=== PATIENT | male | born 1970 | race Caucasian/White ===

== ENCOUNTER 2017-01-25 07:31 | Inpatient (IN) | payer MEDICAID ==
[2017-01-25] MEDS ORDERED: Scopolamine 1.5 MG Transdermal Patch TOP SCH (08:00)
[2017-01-25] MEDS ORDERED: Gabapentin 300 MG Cap PO ONE (08:00)
[2017-01-25] MEDS ORDERED: Lactated Ringers 1,000 ML IV SCH (08:00)
[2017-01-25] MEDS ORDERED: Ondansetron 4 MG/2 ML SDV ONE (08:59)
[2017-01-25] MEDS ORDERED: Glycopyrrolate 0.2 MG/ML 5 ML MDV ONE (08:59)
[2017-01-25] MEDS ORDERED: Succinylcholine 200 MG/10 ML MDV ONE (08:59)
[2017-01-25] MEDS ORDERED: Dexamethasone 4 MG/ML SDV ONE (08:59)
[2017-01-25] MEDS ORDERED: Propofol 200 MG/20 ML SDV ONE (08:59)
[2017-01-25] MEDS ORDERED: Neostigmine Methylsulfate 1 MG/ML 5 ML Syringe ONE (08:59)
[2017-01-25] MEDS ORDERED: Rocuronium 50 MG/5 ML Vial ONE (08:59)
[2017-01-25] MEDS ORDERED: Thrombin (Bovine) 5,000 Unit Kit ONE (09:00)
[2017-01-25] MEDS ORDERED: Ketamine 500 MG/5 ML MDV IV ONE (09:30)
[2017-01-25] MEDS ORDERED: Naloxone 0.4 MG/ML SDV ONE (09:31)
[2017-01-25] MEDS ORDERED: Meropenem 500 MG SDV ONE (09:41)
[2017-01-25] MEDS: Tranexamic Acid 1,000 MG in Sodium Chloride 0.9% 50 ML IV SCH ×2 (10:09→14:01)
[2017-01-25] MEDS: ceFAZolin 2 GM in Sodium Chloride 0.9% 50 ML IV ONE ×2 (10:09→11:35)
[2017-01-25] MEDS ORDERED: Albuterol/Ipratropium 3.0-0.5 MG/3 ML Neb Soln NEB ONE (10:15)
[2017-01-25] MEDS ORDERED: Linezolid 200 MG/100 ML Bag IRR ONE (11:03)
[2017-01-25] MEDS: Ropivacaine 49.25 ML, Ketorolac 30 MG, EPINEPHrine 0.5 MG, cloNIDine 80 MCG, Sodium Chl... INJECT ONE ×10 (11:33→16:33)
[2017-01-25] MEDS ORDERED: Lactated Ringers 1,000 ML ONE (12:08)
[2017-01-25] MEDS ORDERED: Labetalol 20 MG/4 ML Syringe ONE (12:12)
[2017-01-25] MEDS ORDERED: ceFAZolin 1 GM Vial ONE (13:16)
[2017-01-25] MEDS ORDERED: Sodium Chloride 0.9% 10 ML ONE (13:16)
[2017-01-25] MEDS ORDERED: Naloxone 0.4 MG/ML SDV IVPUSH PRN (13:46)
[2017-01-25] MEDS ORDERED: HYDROmorphone/Normal Saline 15 MG/30 ML PCA IV PRN (13:46)
[2017-01-25] MEDS ORDERED: Naloxone 0.4 MG/ML SDV IV PRN (13:48)
[2017-01-25] MEDS ORDERED: Ondansetron 4 MG/2 ML SDV IVPUSH PRN (15:21)
[2017-01-25] MEDS ORDERED: Albuterol/Ipratropium 3.0-0.5 MG/3 ML Neb Soln INH PRN (15:22)
[2017-01-25] MEDS ORDERED: Baclofen 10 MG Tab PO PRN (15:22)
--- NOTE | 2017-01-25 15:37 | OR ---
DATE OF PROCEDURE: 01/25/2017 PREOPERATIVE DIAGNOSES: 1. Lumbar spondylolisthesis, L5-S1. 2. Lumbar spondylosis, L5-S1. 3. Lumbar disk degeneration, L5-S1. 4. Discogenic pain, L5-S1. POSTOPERATIVE DIAGNOSES: 1. Lumbar spondylolisthesis, L5-S1. 2. Lumbar spondylosis, L5-S1. 3. Lumbar disk degeneration, L5-S1. 4. Discogenic pain, L5-S1. PROCEDURES: 1. Anterior lumbar interbody fusion. 2. Insertion of interbody device, L5-S1. 3. Segmental instrumentation, L5-S1. CO-SURGEON: Maury Lagos MD. PIPE ROLLER: RONALD Morrissey. ANESTHESIA: General endotracheal intubation. FLUID: Lactated Ringer solution. ESTIMATED BLOOD LOSS: 400 mL. COMPLICATIONS: None. SPECIMEN: None. DISCHARGE DISPOSITION: Stable to PACU. INDICATIONS: The patient was seen preoperatively in the clinic. He had undergone extensive nonoperative treatment. Preoperative imaging confirmed the above-mentioned diagnosis. Risks and benefits of the procedure were explained to the patient. Informed consent was obtained. DETAILS OF PROCEDURE: The patient was seen preoperatively by myself and the Anesthesia Staff, Dr. Maury Lagos in the preoperative holding area where the operative site was marked. He was brought to the operative suite by the anesthesia staff where general anesthesia was administered. A sterile Nicole catheter was placed. The operative fluoroscopy unit was draped in a sterile manner. Neuromonitoring leads were placed, which were normal and then remained normal throughout the case. The patient was then prepped and draped in a sterile manner. Time-out was called identifying the correct patient, correct procedure, the correct site, and antibiotics had begun within appropriate period of time. Please see Dr. Maury Lagos's notes for exposure. After exposure taken place, we confirmed the correct level. The anterior annulus was incised along the disk space with a long 15 blade. Ruth was then used to elevate the annulus from the vertebral bodies and then the disk was removed as much on block as possible followed by removal with Kerrison, straight curettes, angled curettes, and pituitaries. After this had been accomplished, I sequentially placed blunt li up to 19. I then inserted a 15 trial 26 x 34, distracted adequately. We then inserted our final implant, which was a Globus Magnify-S 26 x 34, 15 degree, 14 to 18 mm, and then had distracted and under direct fluoroscopic visualization. We then inserted a 25-mm screw superiorly after all and then two 30 mm screws inferiorly at S1. After this had been accomplished, Maury Lagos performed the closure. Please note that we applied allograft during the case, which was Globus Signify. Please see Dr. Lagos's note for closure. Wm Lagos DO /[id number]
[2017-01-25] MEDS: Dextrose 5%-Lactated Ringers 1,000 ML IV SCH ×2 (15:52→22:24)
[2017-01-25] MEDS ORDERED: Pantoprazole 40 MG Vial IV SCH (16:30)
[2017-01-25] MEDS: ClonazePAM 0.5 MG Tab PO SCH ×2 (16:56→22:24)
[2017-01-25] MEDS: ARIPiprazole 10 MG Tab PO SCH (16:56)
[2017-01-25] MEDS: buPROPion 150 MG Tab.ER PO SCH (16:56)
[2017-01-25] MEDS: VERIFY SCOPOLAMINE PATCH TOP SCH (16:56)
[2017-01-25] MEDS: ceFAZolin 2 GM in Sodium Chloride 0.9% 50 ML IV SCH (17:05)
[2017-01-25] MEDS: Albuterol/Ipratropium 3.0-0.5 MG/3 ML Neb Soln INH SCH ×2 (17:23→22:24)
[2017-01-25] MEDS: Naproxen 250 MG Tab PO SCH (22:15)
[2017-01-25] MEDS: Gabapentin 300 MG Cap PO SCH (22:16)
[2017-01-25] MEDS: FLUoxetine 20 MG Cap PO SCH (22:17)
[2017-01-26] MEDS: ceFAZolin 2 GM in Sodium Chloride 0.9% 50 ML IV SCH (04:03)
[2017-01-26] MEDS: Dextrose 5%-Lactated Ringers 1,000 ML IV SCH (04:07)
[2017-01-26] MEDS ORDERED: Acetaminophen/oxyCODONE 325-5 MG Tab PO PRN (07:22)
[2017-01-26 07:32] VITALS: BP 81/55
[2017-01-26] MEDS: ARIPiprazole 10 MG Tab PO SCH (08:39)
[2017-01-26] MEDS: buPROPion 150 MG Tab.ER PO SCH (08:39)
[2017-01-26] MEDS: FLUoxetine 20 MG Cap PO SCH (08:40)
[2017-01-26] MEDS: Naproxen 250 MG Tab PO SCH (08:40)
[2017-01-26] MEDS: Gabapentin 300 MG Cap PO SCH (08:41)
[2017-01-26] MEDS: ClonazePAM 0.5 MG Tab PO SCH (08:44)
[2017-01-26] MEDS: VERIFY SCOPOLAMINE PATCH TOP SCH (08:46)
--- NOTE | 2017-01-26 08:59 | PN ---
DATE OF SERVICE: 01/26/2017 SUBJECTIVE: Saji is postop day #1. Vital signs have been stable. Temp max 98.1. Oral intake n.p.o. Urine output via Nicole catheter is 2024. He reports his pain is controlled. The patient reports numbness in his left fingertips to his elbow. REVIEW OF SYSTEMS: Remainder of review of systems negative for any pertinent positives and negatives. OBJECTIVE: GENERAL: Saji Pleitez is a 46-year-old male. He is sitting in bed with the head of his bed elevated into a sitting position. VITAL SIGNS: TPR 98.1, 86, 16, and blood pressure 81/55. O2 by pulse oximetry is 93% on 2 L. HEENT: Negative. NECK: Supple. HEART: Regular rate and rhythm. LUNGS: Clear. ABDOMEN: Dressing dry and intact. SCOTT drain intact and has put out 25 mL of a dark red drainage. Abdominal binder is on. EXTREMITIES: Without peripheral edema. Posterior tibial pulses palpable. ASSESSMENT: Anterior lumbar interbody fusion, insertion of interbody device and segmental instrumentation for lumbar spondylolisthesis at L5-S1, lumbar spondylosis at L5-S1, lumbar disk degeneration at L5-S1, and discogenic pain at L5-S1. Date of surgery, 01/25/2017; surgeons, Maury Lagos MD, and Wm Lagos DO. PLAN: 1. Discontinue Nicole catheter. 2. Regular diet. 3. Percocet 5/325 mg 1 to 2 q.4 hours p.r.n. pain. 4. Dulcolax 20 mg b.i.d. 5. Senna Plus one tablet p.o. b.i.d. 6. Discontinue D5LR. It was accidentally pulled out by the patient. 7. 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 8. Discontinue Ancef. 9. Discontinue continuous pulse ox. 10.To teach the patient home SCOTT drain care. 11.Good pulmonary toilet encouraged. 12.We will evaluate p.r.n. or in a.m. Maxine Diaz PA-C /[id number]
[2017-01-26] MEDS ORDERED: Bisacodyl 5 MG Tab PO SCH (09:00)
[2017-01-26] MEDS: Albuterol/Ipratropium 3.0-0.5 MG/3 ML Neb Soln INH SCH (11:02)
--- NOTE | 2017-01-31 12:59 | OR ---
DATE OF PROCEDURE: 01/25/2017 PREOPERATIVE DIAGNOSIS: Lumbar discogenic pain and disc degeneration involving L5-S1. POSTOPERATIVE DIAGNOSIS: Lumbar discogenic pain and disc degeneration involving L5-S1. PROCEDURE: Anterior lumbar interspinal fusion, L5-S1 (16023). ANESTHESIA: General. ASSISTANTS: RONALD Tiwari and VIBHA Morris. INDICATION FOR PROCEDURE: This 46-year-old presenting for an anterior lumbar interspinal fusion of L5-S1 per Dr. Wm Lagos. To provide exposure, General Surgery was involved in the case and the plan is to proceed with left lower paramedian incision and exposure of the L5-S1 disk space to facilitate the inner spinal fusion. Potential risks of the procedure were reviewed at the previous consultation as well as once again today that include bleeding, infection, injury to the ureters or viscera, possible vascular injury with potentially catastrophic reddened and life-threatening bleeding, problems with venous thrombosis or arterial occlusion requiring reconstructive vascular surgery along with the possibility of cardiopulmonary, septic, or hemorrhagic complications leading to were all discussed, and the patient wishes to proceed. DETAILS OF PROCEDURE: The patient was taken to the operating room and placed in the supine position. After general endotracheal anesthesia was induced, a roll underneath the right knee was placed to offload some pressure from the psoas muscle. Nicole catheter was inserted and the abdomen prepped and draped. The patient was confirmed to have good posterior tibial pulses bilaterally at the onset of the procedure. After the abdomen was prepped and draped, left lower paramedian incision was made and carried down through the skin and subcutaneous tissue. This was then carried down through the anterior rectus sheath following the incision. The dissection of rectus tissues then continued laterally along the medial retraction of the rectus muscle and into the retroperitoneal plane. Blunt dissection was then continued down to the psoas muscle and then from there, the ureter and viscera were dissected off the posterior retroperitoneum, aorta and left iliac vessels. This was primarily done bluntly with some aided cautery dissection. At this point in time retractors were then placed such that the L5-S1 disk space was adequately exposed. The middle sacral vessels were then taken with Harmonic scalpel and the disk space then freed up from the surrounding soft tissues using blunt dissection. At this point, Dr. Reyes Lagos proceeded with the lumbar interspinal fusion procedure which will be dictated under separate heading. After a successful completion of the interspinal fusion, the retractors were removed. The vasculature was inspected. Good pulses were confirmed and at that point the area irrigated with cefoxitin-containing saline solution. The anterior rectus sheath was then closed with #2 Vicryl stitch and the subcutaneous tissue was drained with a 10-Bulgarian round Jeffy-Nowak drain. Over this, a 4-0 Vicryl subcutaneous tissue stitch was placed along with skin khadijah. The drain was affixed with some 4-0 Vicryl stitch and dressing applied. The patient was taken to the recovery room in satisfactory condition. Prior to being removed from the operating room table, the feet were inspected and the posterior tibial pulses were once again confirmed to be present and the feet appeared to be well perfused. Maury Lagos MD /[id number]
--- NOTE | 2017-02-16 15:16 | PCM.DCSUM1 ---
Discharge Summary - Hospital Course Free Text/Narrative:: Saji is a pleasant 46-year-old male who had an anterior lumbar fusion. He is ambulating without any difficulties. His dressing is clean dry and intact at this time. Patient is pain is under control with oral pain medication. He denies any other concerns at this time. - Discharge Data Discharge Date: 01/26/17 Discharge Disposition: Home, Self-Care 01 Condition: Good - Patient Summary/Data Consults: Consultations 01/25/17 15:26 PT Evaluation and Treatment [CONS] Routine Please Evaluate and Treat. PT Reason for Consult: Post op Ortho Surgery Special Instructions: evaluate and teach This query below is only for informational purposes and is not editable. - Patient Instructions Diet: Usual Diet as Tolerated Activity: Apply Ice, As Tolerated Driving: Do Not Drive Showering/Bathing: May Shower, No Tub Bathing/Swimming Wound/Incision Care: Keep Operative Site/Wound Site Clean and Dry, Change Dressing Daily Notify Provider of: Fever, Increased Pain, Swelling and Redness, Drainage Other/Special Instructions: empty drain 2 times per day. Keep incision open to air. - Discharge Plan Prescriptions/Med Rec: Acetaminophen/oxyCODONE [Percocet 325-5 MG] 1 tab PO Q6HR #90 tablet Home Medications: Home Meds Baclofen 10 mg PO BID PRN 06/29/16 [History] Diclofenac Sodium [Voltaren] 50 mg PO BID 06/29/16 [History] ARIPiprazole [Abilify] 10 mg PO DAILY 01/21/17 [History] Albuterol Sulfate [Proair Hfa] 2 puff INH QID 01/21/17 [History] ClonazePAM [KlonoPIN] 0.5 mg PO TID 01/21/17 [History] FLUoxetine [PROzac] 20 mg PO TID 01/21/17 [History] Gabapentin [Neurontin] 600 mg PO TID 01/21/17 [History] Omeprazole Magnesium [Prilosec Otc] 20 mg PO DAILY 01/21/17 [History] Simvastatin [Zocor] 40 mg PO BEDTIME 01/21/17 [History] buPROPion HCl [Wellbutrin Xl] 150 mg PO QAM 01/21/17 [History] Acetaminophen/oxyCODONE [Percocet 325-5 MG] 1 tab PO Q6HR #90 tablet 01/26/17 [ Rx] Patient Handouts: Spinal Fusion, Care After, Acetaminophen; Oxycodone tablets, Preventing Constipation After Surgery, Surgical Drain Home Care Referrals: Maury Lagos MD [Physician] - (follow up on 02/02) Wen Sorenson NP [Nurse Practitioner] - (1 month recheck) - Discharge Summary/Plan Comment DC Time >30 min.: Yes Discharge Summary/Plan Comment: At this time we'll discharge patient to home. He'll follow up with general surgery 1 week and he will follow up with orthopedic clinic in one month. He will notify us if he has any other issues in the meantime. I will send him home on Percocet. - Patient Data Vitals - Most Recent: Last Vital Signs Temp 36.7 C 01/26/17 07:27 Pulse 86 01/26/17 07:27 Resp 16 01/26/17 07:27 BP 81/55 L 01/26/17 07:27 Pulse Ox 91 L 01/26/17 07:28 Weight - Most Recent: 217 lb 2 oz Med Orders - Current: Current Medications Discontinued Medications Albuterol/Ipratropium (Duoneb 3.0-0.5 Mg/3 Ml) 3 ml NEB ONETIME ONE Stop: 01/25/17 10:16 Last Admin: 01/25/17 10:09 Dose: 3 ml Albuterol/Ipratropium (Duoneb 3.0-0.5 Mg/3 Ml) 3 ml INH QIDRT [facility] Last Admin: 01/26/17 11:02 Dose: Not Given Albuterol/Ipratropium (Duoneb 3.0-0.5 Mg/3 Ml) 3 ml INH ASDIRECTED PRN PRN Reason: BREATHING Aripiprazole (Abilify) 10 mg PO DAILY [facility] Last Admin: 01/26/17 08:39 Dose: 10 mg Baclofen (Lioresal) 10 mg PO BID PRN PRN Reason: MUSCLE SPASM Bisacodyl (Dulcolax) 20 mg PO BID [facility] Last Admin: 01/26/17 08:44 Dose: 20 mg Bupropion HCl (Wellbutrin Xl) 150 mg PO DAILY [facility] Last Admin: 01/26/17 08:39 Dose: 150 mg Cefazolin Sodium (Ancef) Confirm Administered Dose 1 gm .ROUTE .STK-MED ONE Stop: 01/25/17 13:17 Clonazepam (Klonopin) 0.5 mg PO TID [facility] Last Admin: 01/26/17 08:44 Dose: 0.5 mg Ropivacaine 49.25 ml/Ketorolac Tromethamine 30 mg/Epinephrine HCl 0.5 mg/ Clonidine HCl 80 mcg/ Sodium Chloride 48.45 ml 0 ml INJECT ONETIME ONE Stop: 01/25/17 09:31 Last Admin: 01/25/17 16:33 Dose: Not Given Dexamethasone (Dexamethasone) Confirm Administered Dose 4 mg .ROUTE .STK-MED ONE Stop: 01/25/17 09:00 Fentanyl Citrate (Fentanyl) Confirm Administered Dose 500 mcg .ROUTE .STK-MED ONE Stop: 01/25/17 09:00 Fentanyl Citrate (Fentanyl) Confirm Administered Dose 500 mcg .ROUTE .STK-MED ONE Stop: 01/25/17 11:12 Fluoxetine HCl (Prozac) 20 mg PO TID [facility] Last Admin: 01/26/17 08:40 Dose: 20 mg Gabapentin (Neurontin) 300 mg PO ONETIME ONE Stop: 01/25/17 08:01 Last Admin: 01/25/17 08:17 Dose: 300 mg Gabapentin (Neurontin) 600 mg PO TID [facility] Last Admin: 01/26/17 08:41 Dose: 600 mg Glycopyrrolate (Robinul) Confirm Administered Dose 1 mg .ROUTE .STK-MED ONE Stop: 01/25/17 09:00 Hydromorphone HCl (Dilaudid Utilization Management Nurse 15 Mg In Ns 30 Ml) 0 mg IV ASDIRECTED PRN; Protocol PRN Reason: Pain Last Admin: 01/25/17 14:11 Dose: 0.3 mg Cefazolin Sodium 2 gm/ Sodium (Chloride) 50 mls @ 100 mls/hr IV ONETIME ONE Stop: 01/25/17 06:29 Last Admin: 01/25/17 11:35 Dose: Not Given Lactated Ringer's (Ringers, Lactated) 1,000 mls @ 100 mls/hr IV ASDIRECTED [facility] Last Admin: 01/25/17 08:19 Dose: 100 mls/hr Tranexamic Acid 1,000 mg/ (Sodium Chloride) 60 mls @ 240 mls/hr IV Q3H [facility] Stop: 01/25/17 12:44 Last Admin: 01/25/17 14:01 Dose: 240 mls/hr Ketamine HCl 100 mg/ Sodium (Chloride) 100 mls @ 23 mls/hr IV ASDIRECTED [facility] Stop: 01/25/17 12:00 Linezolid (Zyvox) Confirm Administered Dose 100 mls @ as directed .ROUTE .STK- MED ONE Stop: 01/25/17 09:00 Lactated Ringer's (Ringers, Lactated) Confirm Administered Dose 1,000 mls @ as directed .ROUTE .STK-MED ONE Stop: 01/25/17 12:09 Sodium Chloride (Normal Saline) Confirm Administered Dose 10 mls @ as directed .ROUTE .STK-MED ONE Stop: 01/25/17 13:17 Dextrose/Lactated Ringer's (Dextrose 5%-Lactated Ringers) 1,000 mls @ 175 mls/ hr IV ASDIRECTED [facility] Last Admin: 01/26/17 04:07 Dose: 175 mls/hr Cefazolin Sodium 2 gm/ Sodium (Chloride) 50 mls @ 100 mls/hr IV Q8H [facility] Stop: 01/26/17 10:29 Last Admin: 01/26/17 04:03 Dose: 100 mls/hr Ketamine HCl (Ketalar) 39 mg IV ONETIME ONE Stop: 01/25/17 09:31 Last Admin: 01/25/17 16:33 Dose: Not Given Labetalol HCl (Normodyne) Confirm Administered Dose 20 mg .ROUTE .STK-MED ONE Stop: 01/25/17 12:13 Linezolid (Zyvox) 200 mg IRR .STK-MED ONE Stop: 01/25/17 11:04 Last Admin: 01/25/17 11:03 Dose: 200 mg Meropenem (Merrem) Confirm Administered Dose 500 mg .ROUTE .STK-MED ONE Stop: 01/25/17 09:42 Last Admin: 01/25/17 11:02 Dose: 500 mg Naloxone HCl (Narcan) Confirm Administered Dose 0.4 mg .ROUTE .STK-MED ONE Stop: 01/25/17 09:32 Naloxone HCl (Narcan) 0.1 mg IV ASDIRECTED PRN PRN Reason: decreased respiratory rate Naproxen (Naprosyn) 500 mg PO BID [facility] Last Admin: 01/26/17 08:40 Dose: 500 mg Neostigmine Methylsulfate (Neostigmine) Confirm Administered Dose 5 mg .ROUTE .STK-MED ONE Stop: 01/25/17 09:00 Verify Scopolamine (Patch) 0 each TOP DAILY [facility] Last Admin: 01/26/17 08:46 Dose: Not Given Ondansetron HCl (Zofran) Confirm Administered Dose 4 mg .ROUTE .STK-MED ONE Stop: 01/25/17 09:00 Ondansetron HCl (Zofran) 4 mg IVPUSH Q4H PRN PRN Reason: NAUSEA Oxycodone/Acetaminophen (Percocet 325-5 Mg) 1 - 2 tab PO Q4H PRN PRN Reason: paiin Last Admin: 01/26/17 08:07 Dose: 2 tab Pantoprazole Sodium (Protonix Iv) 40 mg IV Q24H [facility] Last Admin: 01/25/17 16:58 Dose: 40 mg Propofol (Diprivan 20 Ml) Confirm Administered Dose 200 mg .ROUTE .STK-MED ONE Stop: 01/25/17 09:00 Rocuronium [place] (Zemuron) Confirm Administered Dose 50 mg .ROUTE .STK-MED ONE Stop: 01/25/17 09:00 Scopolamine (Transderm-Scop) 1.5 mg TOP Q72H [facility] Last Admin: 01/25/17 08:18 Dose: 1.5 mg Senna/Docusate Sodium (Senna Plus) 1 tab PO BID [facility] Last Admin: 01/26/17 08:44 Dose: 1 tab Succinylcholine Chloride (Quelicin) Confirm Administered Dose 200 mg .ROUTE .STK -MED ONE Stop: 01/25/17 09:00 Thrombin (Thrombin-Jmi) Confirm Administered Dose 15,000 unit .ROUTE .STK-MED ONE Stop: 01/25/17 09:01 Last Admin: 01/25/17 11:03 Dose: 5,000 unit - Exam General: Reports: Alert, Oriented Back Exam: Reports: Normal Inspection, Full Range of Motion Extremities: Normal Inspection, Normal Range of Motion, Non-Tender, No Pedal Edema, Normal Capillary Refill Skin: Reports: Warm, Dry, Intact Wound/Incisions: Reports: Healing Well, Dressing Dry and Intact, No Drainage Neurological: Reports: No New Focal Deficit, Strength Equal Bilateral, Reflexes Equal Bilateral Psy/Mental Status: Reports: Alert, Normal Affect *Q Meaningful Use (DIS) - VTE *Q VTE Criteria *Q: - Stroke *Q Stroke Criteria *Q: - AMI *Q AMI Criteria *Q:
== END 2017-01-26 11:34 | disposition home or self-care (01) | DRG 460 ==
LOC: JP.MS 07:31 → JP.SDS 07:31 → EDSTATUS 08:10 → JP.MS 13:45
PROVIDERS: ADMIT Orthopaedic Surgery; ATTEND Surgery
PROC: 0SG30A0 Fusion of Lumbosacral Joint with Interbody Fusion Device, Anterior Approach, Anterior Column, Open Approach (ICD-10-PCS; principal; 2017-01-25)
PROC: 0SG00A0 Fusion of Lumbar Vertebral Joint with Interbody Fusion Device, Anterior Approach, Anterior Column, Open Approach (ICD-10-PCS; 2017-01-25)
DX: M43.16 Spondylolisthesis, lumbar region (principal); M51.36 Other intervertebral disc degeneration, lumbar region; M47.9 Spondylosis, unspecified; Z87.891 Personal history of nicotine dependence; Z79.899 Other long term (current) drug therapy
CPT/HCPCS: 36415; 76001; 80048; 83735; 84100; 85027; 86850; 86900; 86901; 86920; 86922; 94762; 97161-GP; 97530-GP; 97535-GP; A9270-GY; C1713; C9113; J0171; J0330; J0690; J0735; J1100; J1170; J1885; J2020; J2185; J2310; J2405; J2704; J2710; J2795; J3010; J7042; J7050; J7120; J7620

== ENCOUNTER 2018-09-27 17:34 | Emergency (ER) | payer MEDICAID ==
[2018-09-27 18:08] VITALS: BP 143/79
[2018-09-27] MEDS ORDERED: Bacitracin Oint 1 GM U/D Packet TOP ONE (19:03)
--- NOTE | 2018-09-27 19:08 | EDM.PDOC ---
ED HPI GENERAL MEDICAL PROBLEM - General Chief Complaint: Upper Extremity Injury/Pain Stated Complaint: RIGHT HAND INJURY Time Seen by Provider: 09/27/18 18:25 Source of Information: Reports: Patient History Limitations: Reports: No Limitations - History of Present Illness INITIAL COMMENTS - FREE TEXT/NARRATIVE: This man was loading a vehicle on a trailer using a chain when something broke loose and the chain flu back and hit him in the right hand. This happened just prior to arrival. He complains of mostly pain around the MCP joint of the index finger. There is a small area of skin loss on the index finger also. Left Hand Pain Score (Numeric/FACES): 8 - Related Data Allergies Allergy/AdvReac Type Severity Reaction Status Date / Time No Known Allergies Allergy Verified 04/07/18 10:16 Home Meds: Home Meds Baclofen 10 mg PO BID PRN 06/29/16 [History] Diclofenac Sodium [Voltaren] 50 mg PO BID 06/29/16 [History] ARIPiprazole [Abilify] 10 mg PO DAILY 01/21/17 [History] Albuterol Sulfate [Proair Hfa] 2 puff INH QID 01/21/17 [History] ClonazePAM [KlonoPIN] 0.5 mg PO BID 01/21/17 [History] FLUoxetine [PROzac] 20 mg PO TID 01/21/17 [History] Gabapentin [Neurontin] 600 mg PO TID 01/21/17 [History] Omeprazole Magnesium [Prilosec Otc] 20 mg PO DAILY 01/21/17 [History] Simvastatin [Zocor] 40 mg PO BEDTIME 01/21/17 [History] buPROPion HCl [Wellbutrin Xl] 150 mg PO QAM 01/21/17 [History] Past Medical History Cardiovascular History: Reports: High Cholesterol Respiratory History: Reports: Asthma Musculoskeletal History: Reports: Back Pain, Chronic Other Musculoskeletal History: s/p ALIF 01-25-17 Psychiatric History: Reports: Depression Hematologic History: Reports: Blood Transfusion(s), Other (See Below) Other Hematologic History: as a baby Dermatologic History: Reports: Other (See Below) Other Dermatologic History: R index finger cut - Infectious Disease History Infectious Disease History: Reports: Chicken Pox - Past Surgical History HEENT Surgical History: Reports: Tonsillectomy GI Surgical History: Reports: Hernia, Abdominal Social & Family History - Family History Family Medical History: Noncontributory - Tobacco Use Smoking Status *Q: Current Every Day Smoker Years of Tobacco use: 30 Packs/Tins Daily: 0.5 - Caffeine Use Caffeine Use: Reports: Coffee, Soda - Recreational Drug Use Recreational Drug Use: No Review of Systems - Review of Systems Review Of Systems: ROS reveals no pertinent complaints other than HPI. ED EXAM, GENERAL - Physical Exam Exam: See Below Exam Limited By: No Limitations General Appearance: Alert, WD/WN, Mild Distress Extremities: Other (Mild swelling to the dorsum of the hand around the MCP joint of the index finger. Small area of skin loss dorsum of the right index finger of the middle phalanx. A few little next year and there but nothing serious area MCP joint of index finger is moderately tender. Neurovascular tendon all intact) Course - Vital Signs Last Recorded V/S: Last Vital Signs Temp 36.5 C 09/27/18 17:47 Pulse 93 09/27/18 17:47 Resp 18 09/27/18 17:47 BP 143/79 H 09/27/18 17:47 Pulse Ox - Orders/Labs/Meds Orders: Active Orders 24 hr Category Date Time Status Hand Comp Min 3V Rt [CR] Stat Exams 09/27/18 18:28 Taken Bacitracin [Bacitracin Oint 1 GM] Med 09/27/18 19:03 Once 1 dose TOP ONETIME ONE Medication Orders Bacitracin (Bacitracin Oint 1 Gm) 1 dose TOP ONETIME ONE Stop: 09/27/18 19:04 Meds: Medications Generic Name Dose Route Start Last Admin Trade Name Rigo PRN Reason Stop Dose Admin Bacitracin 1 dose 09/27/18 19:03 Bacitracin Oint 1 Gm TOP 09/27/18 19:04 ONETIME ONE - Radiology Interpretation Free Text/Narrative:: No fracture or dislocation - Re-Assessments/Exams Free Text/Narrative Re-Assessment/Exam: 09/27/18 19:06 Wounds were cleansed bacitracin ointment applied and followed by a dressing. Departure - Departure Time of Disposition: 19:06 Disposition: Home, Self-Care 01 Condition: Fair Clinical Impression: Contusion of right hand - Discharge Information Referrals: Nehal Callaway PA [Primary Care Provider] - Additional Instructions: Remove the finger dressing tomorrow. Wash with soap and water and apply a Band- Aid. Keep that clean and dry change the dressing daily. If needed for pain you may use Narco 5/325 one or 2 every 4 hours dispensed #12. This medication can cause sedation and impaired driving. Use rubber gloves if needed while working to keep the dressing on your finger clean and dry - My Orders Last 24 Hours: My Active Orders 09/27/18 18:28 Hand Comp Min 3V Rt [CR] Stat 09/27/18 19:03 Bacitracin [Bacitracin Oint 1 GM] 1 dose TOP ONETIME ONE - Assessment/Plan Last 24 Hours: My Active Orders 09/27/18 18:28 Hand Comp Min 3V Rt [CR] Stat 09/27/18 19:03 Bacitracin [Bacitracin Oint 1 GM] 1 dose TOP ONETIME ONE
--- NOTE | 2018-09-27 19:10 | CRLCR ---
Indication: Pain after injury to 2nd right finger Technique: Three views right hand Comparison: None Findings: Bones: Alignment is normal. No fractures or bone lesions. Joint spaces: Unremarkable. Soft tissues: A bandage overlies the proximal interphalangeal joint of the right 2nd digit. No radiopaque foreign body identified. Impression: Negative. Dictated by Julia Carnes MD @ Sep 27 2018 7:07PM Signed by Dr. Julia Carnes @ Sep 27 2018 7:09PM
== END 2018-09-27 19:25 | disposition home or self-care (01) ==
LOC: JP.ED 17:34
DX: S60.021A Contusion of right index finger without damage to nail, initial encounter (principal); E78.00 Pure hypercholesterolemia, unspecified; F32.9 Major depressive disorder, single episode, unspecified; F17.210 Nicotine dependence, cigarettes, uncomplicated; Z79.899 Other long term (current) drug therapy; W22.8XXA Striking against or struck by other objects, initial encounter
CPT/HCPCS: 73130-RT; 99283-25

== ENCOUNTER 2018-11-04 16:08 | Emergency (ER) | payer MEDICAID ==
[2018-11-04 16:21] VITALS: BP 127/76; PULSE 94
--- NOTE | 2018-11-04 16:39 | EDM.PDOC ---
ED HPI GENERAL MEDICAL PROBLEM - General Chief Complaint: Upper Extremity Injury/Pain Stated Complaint: POSSIBLE BROKEN RT WRIST Time Seen by Provider: 11/04/18 16:26 Source of Information: Reports: Patient History Limitations: Reports: No Limitations - History of Present Illness INITIAL COMMENTS - FREE TEXT/NARRATIVE: fell yesterday to the ground, hands outstretched; hurts to move. He states he hurt this hand in the past. No previous surgeries however; it is swollen; painful w/ROM Onset: Today Location: Reports: Upper Extremity, Right Quality: Reports: Throbbing Severity: Moderate Improves with: Reports: None Worsens with: Reports: None Associated Symptoms: Reports: Other (swelling, decreased rom) Right Wrist Pain Score (Numeric/FACES): 6 - Related Data Allergies Allergy/AdvReac Type Severity Reaction Status Date / Time No Known Allergies Allergy Verified 11/04/18 16:23 Home Meds: Home Meds Baclofen 10 mg PO BID PRN 06/29/16 [History] Diclofenac Sodium [Voltaren] 50 mg PO BID 06/29/16 [History] ARIPiprazole [Abilify] 10 mg PO DAILY 01/21/17 [History] Albuterol Sulfate [Proair Hfa] 2 puff INH QID 01/21/17 [History] ClonazePAM [KlonoPIN] 0.5 mg PO BID 01/21/17 [History] FLUoxetine [PROzac] 20 mg PO TID 01/21/17 [History] Gabapentin [Neurontin] 800 mg PO TID 01/21/17 [History] Omeprazole Magnesium [Prilosec Otc] 20 mg PO DAILY 01/21/17 [History] Simvastatin [Zocor] 40 mg PO BEDTIME 01/21/17 [History] buPROPion HCl [Wellbutrin Xl] 150 mg PO QAM 01/21/17 [History] Fenofibrate Nanocrystallized [Fenofibrate] 1 tab PO ASDIRECTED 11/04/18 [History ] Fluticasone/Vilanterol [Breo Ellipta 100-25 MCG Inhalation Kit] 1 puff INH TID 11/04/18 [History] Methocarbamol 1 tab PO ASDIRECTED 11/04/18 [History] Past Medical History Cardiovascular History: Reports: High Cholesterol Respiratory History: Reports: Asthma Musculoskeletal History: Reports: Back Pain, Chronic Other Musculoskeletal History: s/p ALIF 01-25-17 Psychiatric History: Reports: Depression Hematologic History: Reports: Blood Transfusion(s), Other (See Below) Other Hematologic History: as a baby Dermatologic History: Reports: Other (See Below) Other Dermatologic History: R index finger cut - Infectious Disease History Infectious Disease History: Reports: Chicken Pox - Past Surgical History HEENT Surgical History: Reports: Tonsillectomy GI Surgical History: Reports: Hernia, Abdominal Social & Family History - Family History Family Medical History: Noncontributory - Tobacco Use Smoking Status *Q: Heavy Tobacco Smoker Years of Tobacco use: 25 Packs/Tins Daily: 0.5 - Caffeine Use Caffeine Use: Reports: Coffee, Soda - Recreational Drug Use Recreational Drug Use: Yes Review of Systems - Review of Systems Review Of Systems: ROS reveals no pertinent complaints other than HPI. 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, chronic) Neurological: Alert, Oriented, CN II-XII Intact, Normal Cognition, Normal Gait Psychiatric: Normal Affect, Normal Mood Skin Exam: Warm, Dry, Intact Course - Vital Signs Last Recorded V/S: Last Vital Signs Temp 98.3 F 11/04/18 16:20 Pulse 94 11/04/18 16:20 Resp 18 11/04/18 16:20 BP 127/76 11/04/18 16:20 Pulse Ox 94 L 11/04/18 16:20 - Re-Assessments/Exams Free Text/Narrative Re-Assessment/Exam: 11/04/18 20:27 reviewed xray of wrist; no obvious fx; Departure - Departure Time of Disposition: 17:18 Disposition: Home, Self-Care 01 Condition: Good Clinical Impression: Right wrist sprain - Discharge Information *PRESCRIPTION DRUG MONITORING PROGRAM REVIEWED*: Yes *COPY OF PRESCRIPTION DRUG MONITORING REPORT IN PATIENT ELIUD: Not Applicable Instructions: Wrist Sprain, Adult Referrals: Nehal Callaway PA [Primary Care Provider] - Forms: ED Department Discharge Additional Instructions: Ice, tylenol/motrin for pain [place] for breakthrough pain only; this will not be refilled If you take the pain medication, please do not drink or drive Follow up with your doctor if you do not feel the symptoms are improving as they should call with questions. - Problem List & Annotations (1) Right wrist sprain SNOMED Code(s): 51468811 Code(s): S63.501A - UNSPECIFIED SPRAIN OF RIGHT WRIST, INITIAL ENCOUNTER Status: Acute Priority: Low Qualifiers: Encounter type: initial encounter Qualified Code(s): S63.501A - Unspecified sprain of right wrist, initial encounter - Problem List Review Problem List Initiated/Reviewed/Updated: Yes
--- NOTE | 2018-11-04 17:17 | CRLCR ---
TECHNIQUE: Three views of the right wrist. INDICATION: Fall. FINDINGS: Small, chronic appearing ossicle adjacent to the ulnar styloid process. No definite acute right wrist fracture or dislocation identified. Dictated by Yonatan Montes MD @ 11/04/2018 5:15:22 PM Dictated by: Yonatan Montes MD @ 11/04/2018 17:15:28 (Electronically Signed)
== END 2018-11-04 17:34 | disposition home or self-care (01) ==
LOC: JP.ED 16:08
DX: S63.501A Unspecified sprain of right wrist, initial encounter (principal); F32.9 Major depressive disorder, single episode, unspecified; J45.909 Unspecified asthma, uncomplicated; F17.210 Nicotine dependence, cigarettes, uncomplicated; Z79.899 Other long term (current) drug therapy; Z98.890 Other specified postprocedural states; W19.XXXA Unspecified fall, initial encounter
CPT/HCPCS: 73110-RT; 99283-25

== ENCOUNTER 2019-01-29 18:58 | Emergency (ER) | payer MEDICAID ==
[2019-01-29 20:29] VITALS: BP 109/68; PULSE 68
--- NOTE | 2019-01-29 21:09 | EDM.PDOC ---
ED HPI GENERAL MEDICAL PROBLEM - General Chief Complaint: Upper Extremity Injury/Pain Stated Complaint: right hand swollen Time Seen by Provider: 01/29/19 20:45 Source of Information: Reports: Patient History Limitations: Reports: No Limitations - History of Present Illness INITIAL COMMENTS - FREE TEXT/NARRATIVE: 48 yo presents with concerns of right wrist and hand pain Reports this started 3 days ago Has been slowly increasing. Notes swelling on dorsum of hand as well. Denies any trauma. Works at a [employer], lots of repetitive use. Otherwise feeling well. Eileen any history of similar pain in the past. 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 Right Hand Pain Score (Numeric/FACES): 9 - Related Data Allergies Allergy/AdvReac Type Severity Reaction Status Date / Time No Known Allergies Allergy Verified 01/29/19 20:31 Home Meds: Home Meds Baclofen 10 mg PO BID PRN 06/29/16 [History] Diclofenac Sodium [Voltaren] 50 mg PO BID 06/29/16 [History] ARIPiprazole [Abilify] 10 mg PO DAILY 01/21/17 [History] Albuterol Sulfate [Proair Hfa] 2 puff INH QID 01/21/17 [History] ClonazePAM [KlonoPIN] 0.5 mg PO BID 01/21/17 [History] FLUoxetine [PROzac] 20 mg PO TID 01/21/17 [History] Gabapentin [Neurontin] 800 mg PO TID 01/21/17 [History] Omeprazole Magnesium [Prilosec Otc] 20 mg PO DAILY 01/21/17 [History] Simvastatin [Zocor] 40 mg PO BEDTIME 01/21/17 [History] buPROPion HCl [Wellbutrin Xl] 150 mg PO QAM 01/21/17 [History] Fenofibrate Nanocrystallized [Fenofibrate] 1 tab PO ASDIRECTED 11/04/18 [History ] Fluticasone/Vilanterol [Breo Ellipta 100-25 MCG Inhalation Kit] 1 puff INH TID 11/04/18 [History] Methocarbamol 1 tab PO ASDIRECTED 11/04/18 [History] Past Medical History HEENT History: Reports: Impaired Vision Cardiovascular History: Reports: High Cholesterol Respiratory History: Reports: Asthma Musculoskeletal History: Reports: Arthritis, Back Pain, Chronic Other Musculoskeletal History: s/p ALIF 01-25-17 Psychiatric History: Reports: Depression Hematologic History: Reports: Blood Transfusion(s), Other (See Below) Other Hematologic History: as a baby Dermatologic History: Reports: Other (See Below) Other Dermatologic History: R index finger cut - Infectious Disease History Infectious Disease History: Reports: Chicken Pox, Measles, Mumps - Past Surgical History HEENT Surgical History: Reports: Tonsillectomy GI Surgical History: Reports: Hernia, Abdominal Social & Family History - Family History Family Medical History: Noncontributory - Tobacco Use Smoking Status *Q: Current Every Day Smoker Years of Tobacco use: 30 Packs/Tins Daily: 0.5 Used Tobacco, but Quit: Yes Month/Year Tobacco Last Used: Jan 26/2019 Second Hand Smoke Exposure: No - Caffeine Use Caffeine Use: Reports: Coffee, Soda, Tea - Recreational Drug Use Recreational Drug Use: Yes Drug Use in Last 12 Months: Yes Recreational Drug Type: Reports: Marijuana/Hashish Recreational Drug Use Frequency: Rarely Review of Systems - Review of Systems Review Of Systems: See Below Constitutional: Reports: No Symptoms Eyes: Reports: No Symptoms Ears: Reports: No Symptoms Nose: Reports: No Symptoms Mouth/Throat: Reports: No Symptoms Respiratory: Reports: No Symptoms Cardiovascular: Reports: No Symptoms GI/Abdominal: Reports: No Symptoms Genitourinary: Reports: No Symptoms Musculoskeletal: Reports: Hand Pain Skin: Reports: No Symptoms Neurological: Reports: No Symptoms Psychiatric: Reports: No Symptoms ED EXAM, GENERAL - Physical Exam Exam: See Below Exam Limited By: No Limitations General Appearance: Alert, No Apparent Distress Ears: Normal External Exam Nose: Normal Inspection Throat/Mouth: Normal Inspection Head: Atraumatic, Normocephalic Respiratory/Chest: No Respiratory Distress Cardiovascular: Regular Rate, Rhythm GI/Abdominal: Non-Tender, No Distention Extremities: Other (R hand: Swelling of the dorsal aspect of right hand without erythema. Diffuse tenderness most prominant near the wrist. Distal CSM intact. Able to flex and extend digits. Palmar aspect unremarkable. ) Course - Vital Signs Last Recorded V/S: Last Vital Signs Temp 36.7 C 01/29/19 20:38 Pulse 68 01/29/19 20:38 Resp 18 01/29/19 20:38 BP 109/68 01/29/19 20:38 Pulse Ox 96 01/29/19 20:38 - Orders/Labs/Meds Meds: Medications Discontinued Medications Generic Name Dose Route Start Last Admin Trade Name Rigo PRN Reason Stop Dose Admin Acetaminophen 650 mg 01/29/19 21:50 Tylenol PO 01/29/19 21:51 NOW ONE Ibuprofen 400 mg 01/29/19 21:50 Motrin PO 01/29/19 21:51 ONETIME ONE - Re-Assessments/Exams Free Text/Narrative Re-Assessment/Exam: 48 yo presents with concerns of right wrist and hand pain. Denies trauma. Exam shows swelling without cellulitic changes. Oddly, on chart review the patient has been seen for this in that past over last several years. He appears to have a history of arthritis. Patient was not aware of this. He is an unreliable historian. We are obtaining plain films of the hand and wrist as he may have occult trauma. 01/29/19 21:07 Free Text/Narrative Re-Assessment/Exam: XR negative Bedside US performed of the dorsum of hand - no significant cobblestoning of the soft tissue. No fluid collection, nothing to tap. I cannot identify any acute abnormality. Suspicion this is infectious is low. We are going to treat symptomatically - NSAID, apap, ice, elevation Referral placed for urgent ortho referral in AM. 01/29/19 21:59 Departure - Departure Time of Disposition: 22:00 Disposition: Home, Self-Care 01 Clinical Impression: Hand pain, right - Discharge Information Referrals: Nehal Callaway PA [Primary Care Provider] - Forms: ED Department Discharge Additional Instructions: Please take tylenol, ibuprofen for pain Elevate the hand and apply ice overnight. It is important that you follow up with an orthopedist in clinic this week, a referral has been placed.
--- NOTE | 2019-01-29 21:34 | CRLCR ---
Indication: Right hand pain and swelling Technique: Right hand 2 views Comparison: None Findings: Bones: Fingers are slightly flexed. Alignment is otherwise normal. Chronic appearing fracture demonstrated in the ulnar styloid. No other fracture or bone lesion. Joint spaces: Joint spaces appear unremarkable. No degenerative changes. No periarticular erosions or nodules. Soft tissues: Nonspecific moderate dorsal soft tissue swelling. No focal soft tissue abnormality. Dictated by Gino Foreman MD @ 01/29/2019 9:31:59 PM Dictated by: Gino Foreman MD @ 01/29/2019 21:32:06 (Electronically Signed)
[2019-01-29] MEDS ORDERED: Acetaminophen 325 MG Tab PO ONE (21:50)
[2019-01-29] MEDS ORDERED: Ibuprofen 400 MG Tab PO ONE (21:50)
== END 2019-01-29 22:12 | disposition home or self-care (01) ==
LOC: JP.ED 18:58
DX: M79.641 Pain in right hand (principal); F17.210 Nicotine dependence, cigarettes, uncomplicated; E78.00 Pure hypercholesterolemia, unspecified; Z98.890 Other specified postprocedural states; Z79.899 Other long term (current) drug therapy
CPT/HCPCS: 73120; 99283; A9270

== ENCOUNTER 2019-09-03 12:42 | Emergency (ER) | payer MEDICAID ==
[2019-09-03 13:13] VITALS: BP 114/77; PULSE 72
[2019-09-03] MEDS ORDERED: Ketorolac 60 MG/2 ML SDV IM ONE (13:13)
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
--- NOTE | 2019-09-03 14:37 | CR ---
Lumbar Spine 2 or 3V CLINICAL HISTORY: Pain FINDINGS: The vertebral body heights are maintained. Patient has had some surgery at L5-S1 with a disc prosthesis. There is some minimal spondylosis. IMPRESSION: Previous disc surgery at L5-S1
== END 2019-09-03 14:53 | disposition home or self-care (01) ==
LOC: JP.ED 12:42
DX: S30.0XXA Contusion of lower back and pelvis, initial encounter (principal); E78.00 Pure hypercholesterolemia, unspecified; J44.9 Chronic obstructive pulmonary disease, unspecified; F32.9 Major depressive disorder, single episode, unspecified; Z79.899 Other long term (current) drug therapy; F17.210 Nicotine dependence, cigarettes, uncomplicated; W17.89XA Other fall from one level to another, initial encounter
CPT/HCPCS: 72100; 96372; 99283; J1885

== ENCOUNTER 2019-09-21 09:05 | Emergency (ER) | payer MEDICAID ==
[2019-09-21 09:30] VITALS: BP 124/77; PULSE 64
[2019-09-21] MEDS ORDERED: Ketorolac 60 MG/2 ML SDV IM ONE (10:24)
--- NOTE | 2019-09-21 10:26 | EDM.PDOC ---
ED HPI GENERAL MEDICAL PROBLEM - General Chief Complaint: General Stated Complaint: FELL THIS MORNING Time Seen by Provider: 09/21/19 10:25 Source of Information: Reports: Patient, Old Records, RN History Limitations: Reports: No Limitations - History of Present Illness INITIAL COMMENTS - FREE TEXT/NARRATIVE: 49 yo male here after passing out while coughing this morning. He was in the clinic yesterday and seen by his provider for the cough and started on prednisone. There has been no fever, bleeding, diarrhea, or vomiting. Has chronic low back pain and now posterior R neck pain. Does not think he hit his head when he fell today. Araseli Callaway is his provider. Onset: Today Onset Date: 09/21/19 Duration: Minutes:, Improving (since the incident) Location: Reports: Neck (R posterior), Chest (cough), Generalized Quality: Reports: Ache Severity: Mild Improves with: Reports: Rest Worsens with: Reports: Movement Context: Reports: Trauma Associated Symptoms: Reports: Cough (not new), Syncope (with coughing today). Denies: Fever/Chills, Nausea/Vomiting, Shortness of Breath Treatments ENAMEL DRIER: Reports: Other (see below) (none) Back Pain Score (Numeric/FACES): 10 - Related Data Allergies Allergy/AdvReac Type Severity Reaction Status Date / Time No Known Allergies Allergy Verified 09/21/19 09:23 Home Meds: Home Meds Baclofen 10 mg PO BID PRN 06/29/16 [History] Diclofenac Sodium [Voltaren] 50 mg PO BID 06/29/16 [History] ARIPiprazole [Abilify] 10 mg PO DAILY 01/21/17 [History] Albuterol Sulfate [Proair Hfa] 2 puff INH QID 01/21/17 [History] ClonazePAM [KlonoPIN] 0.5 mg PO BID 01/21/17 [History] FLUoxetine [PROzac] 20 mg PO TID 01/21/17 [History] Gabapentin [Neurontin] 800 mg PO TID 01/21/17 [History] Omeprazole Magnesium [Prilosec Otc] 20 mg PO DAILY 01/21/17 [History] Simvastatin [Zocor] 40 mg PO BEDTIME 01/21/17 [History] buPROPion HCL [Wellbutrin Xl] 150 mg PO QAM 01/21/17 [History] Fenofibrate Nanocrystallized [Fenofibrate] 1 tab PO ASDIRECTED 11/04/18 [History ] Fluticasone/Vilanterol [Breo Ellipta 100-25 MCG Inhalation Kit] 1 puff INH TID 11/04/18 [History] methocarbamoL [Methocarbamol] 1 tab PO ASDIRECTED 11/04/18 [History] Propranolol HCl 10 mg PO DAILY 09/03/19 [History] ziprasidone HCL [Ziprasidone HCl] 20 mg PO DAILY 09/03/19 [History] Acetaminophen/HYDROcodone [[place] 325-5 MG] 1 tab PO Q4H PRN #10 tab 09/21/19 [Rx ] Budesonide/Formoterol [Symbicort 160-4.5 MCG] 2 puff INH BID 09/21/19 [History] Montelukast [Singulair] 10 mg PO DAILY 09/21/19 [History] predniSONE 20 mg PO DAILY 09/21/19 [History] Past Medical History HEENT History: Reports: Impaired Vision Cardiovascular History: Reports: High Cholesterol Respiratory History: Reports: Asthma, COPD Gastrointestinal History: Reports: None Genitourinary History: Reports: None Musculoskeletal History: Reports: Arthritis, Back Pain, Chronic Other Musculoskeletal History: s/p ALIF 01-25-17. right hand pain Neurological History: Reports: None Psychiatric History: Reports: Depression Endocrine/Metabolic History: Reports: None Hematologic History: Reports: Blood Transfusion(s), Other (See Below) Other Hematologic History: as a baby Immunologic History: Reports: None Oncologic (Cancer) History: Reports: None Dermatologic History: Reports: Other (See Below) Other Dermatologic History: R index finger cut - Infectious Disease History Infectious Disease History: Reports: Chicken Pox, Measles, Mumps - Past Surgical History HEENT Surgical History: Reports: Tonsillectomy GI Surgical History: Reports: Hernia, Abdominal Musculoskeletal Surgical History: Reports: None Social & Family History - Family History Family Medical History: Noncontributory - Tobacco Use Smoking Status *Q: Current Every Day Smoker Years of Tobacco use: 32 Packs/Tins Daily: 0.5 - Caffeine Use Caffeine Use: Reports: Coffee - Recreational Drug Use Recreational Drug Use: Yes Recreational Drug Type: Reports: Marijuana/Hashish Recreational Drug Use Frequency: Daily ED ROS GENERAL - Review of Systems Review Of Systems: See Below Constitutional: Reports: No Symptoms HEENT: Reports: No Symptoms Respiratory: Reports: Cough. Denies: Shortness of Breath, Wheezing, Pleuritic Chest Pain, Sputum, Hemoptysis Cardiovascular: Reports: Syncope (associated with coughing today.) GI/Abdominal: Reports: No Symptoms : Reports: No Symptoms Musculoskeletal: Reports: Neck Pain (mild, R posterior), Back Pain (chronic) Skin: Reports: No Symptoms Neurological: Reports: No Symptoms Psychiatric: Reports: No Symptoms ED EXAM, GENERAL - Physical Exam Exam: See Below Exam Limited By: No Limitations General Appearance: Alert, WD/WN, No Apparent Distress Eye Exam: Bilateral Eye: Normal Inspection Ears: Normal External Exam, Normal Canal, Hearing Grossly Normal, Normal TMs Ear Exam: Bilateral Ear: Auricle Normal, Canal Normal, TM normal Nose: Normal Inspection, No Blood Throat/Mouth: Normal Inspection, Normal Lips, Normal Oropharynx, Normal Voice, No Airway Compromise Head: Atraumatic, Normocephalic Neck: Normal Inspection, Supple, Full Range of Motion, Tender Lateral (right side, muscular. No vertebral pain. ). No: Non-Tender, Limited Range of Motion, Lymphadenopathy (R), Lymphadenopathy (L) Respiratory/Chest: No Respiratory Distress, Lungs Clear, Normal Breath Sounds, No Accessory Muscle Use Cardiovascular: Regular Rate, Rhythm, No Edema GI/Abdominal: Normal Bowel Sounds, Soft, Non-Tender, No Distention Extremities: Normal Inspection, Normal Range of Motion, Non-Tender, No Pedal Edema. No: Pedal Edema Neurological: Alert, Oriented, CN II-XII Intact, Normal Cognition, No Motor/ Sensory Deficits Psychiatric: Normal Affect, Normal Mood Skin Exam: Warm, Dry, Intact, Normal Color, No Rash Course - Vital Signs Last Recorded V/S: Last Vital Signs Temp 36.6 C 09/21/19 09:29 Pulse 64 09/21/19 09:29 Resp 16 09/21/19 09:29 BP 124/77 09/21/19 09:29 Pulse Ox 95 09/21/19 09:29 Orthostatic Blood Pressure [ 120/83 Standing] Orthostatic Blood Pressure [ 120/73 Sitting] Orthostatic Blood Pressure [ 132/78 Supine] - Orders/Labs/Meds Orders: Active Orders 24 hr Category Date Time Status Orthostatic Vital Signs [RC] ASDIRECTED Care 09/21/19 10:18 Active Meds: Medications Discontinued Medications Generic Name Dose Route Start Last Admin Trade Name Rigo PRN Reason Stop Dose Admin Ketorolac Tromethamine 60 mg 09/21/19 10:24 09/21/19 10:44 Toradol IM 09/21/19 10:25 60 mg ONETIME ONE Administration - Re-Assessments/Exams Free Text/Narrative Re-Assessment/Exam: 09/21/19 11:42 Is feeling better after Toradol. Departure - Departure Time of Disposition: 11:50 Disposition: Home, Self-Care 01 Condition: Fair Clinical Impression: Tussive syncope Contusion of hip, left Qualifiers: Encounter type: initial encounter Qualified Code(s): S70.02XA - Contusion of left hip, initial encounter Neck strain Qualifiers: Encounter type: initial encounter Qualified Code(s): S16.1XXA - Strain of muscle, fascia and tendon at neck level, initial encounter - Discharge Information *PRESCRIPTION DRUG MONITORING PROGRAM REVIEWED*: No *COPY OF PRESCRIPTION DRUG MONITORING REPORT IN PATIENT ELIUD: No Referrals: Nehal Callaway PA [Primary Care Provider] - Forms: ED Department Discharge Additional Instructions: Take acetaminophen OR [place] as needed for pain relief. Recheck with your doctor on Tuesday. Sit down to cough to prevent fainting. Drink ample fluids. Sepsis Event Note - Evaluation Sepsis Screening Result: No Definite Risk - Focused Exam Vital Signs: Vital Signs Temp Pulse Resp BP Pulse Ox 09/21/19 09:29 36.6 C 64 16 124/77 95 Date Exam was Performed: 09/21/19 Time Exam was Performed: 11:42 - My Orders Last 24 Hours: My Active Orders 09/21/19 10:18 Orthostatic Vital Signs [RC] ASDIRECTED - Assessment/Plan Last 24 Hours: My Active Orders 09/21/19 10:18 Orthostatic Vital Signs [RC] ASDIRECTED
== END 2019-09-21 11:56 | disposition home or self-care (01) ==
LOC: JP.ED 09:05
DX: S16.1XXA Strain of muscle, fascia and tendon at neck level, initial encounter (principal); S70.02XA Contusion of left hip, initial encounter; R55 Syncope and collapse; E78.00 Pure hypercholesterolemia, unspecified; J44.9 Chronic obstructive pulmonary disease, unspecified; F32.9 Major depressive disorder, single episode, unspecified; F17.210 Nicotine dependence, cigarettes, uncomplicated; W19.XXXA Unspecified fall, initial encounter
CPT/HCPCS: 96372; 99283; J1885

== ENCOUNTER 2019-10-23 21:42 | Emergency (ER) | payer MEDICAID ==
[2019-10-23] MEDS ORDERED: Nitroglycerin 0.4 MG Tab.SL SL PRN (21:52)
[2019-10-23] MEDS ORDERED: Aspirin 81 MG Tab.Chew PO ONE (21:52)
--- NOTE | 2019-10-23 21:52 | EDM.PDOC ---
ED HPI GENERAL MEDICAL PROBLEM - General Chief Complaint: Chest Pain Stated Complaint: MEDICAL VIA [facility] Time Seen by Provider: 10/23/19 21:52 Source of Information: Reports: Patient History Limitations: Reports: No Limitations - History of Present Illness INITIAL COMMENTS - FREE TEXT/NARRATIVE: 49 years old male patient brought in by ambulance with chief complaint of chest pain or shortness breath started after chasing his dog. Pain is dull aching slightly to the left. No radiation. Denies any nausea or vomiting or diaphoresis. Nonpleuritic. Associated with shortness breath. Denies any leg pain or swelling. Denies any abdominal pain diarrhea or constipation. Denies any urinary symptom. Chest Pain Score (Numeric/FACES): 9 - Related Data Allergies Allergy/AdvReac Type Severity Reaction Status Date / Time No Known Allergies Allergy Verified 10/23/19 21:46 Home Meds: Home Meds Baclofen 10 mg PO BID PRN 06/29/16 [History] Diclofenac Sodium [Voltaren] 50 mg PO BID 06/29/16 [History] ARIPiprazole [Abilify] 10 mg PO DAILY 01/21/17 [History] Albuterol Sulfate [Proair Hfa] 2 puff INH QID 01/21/17 [History] ClonazePAM [KlonoPIN] 0.5 mg PO BID 01/21/17 [History] FLUoxetine [PROzac] 20 mg PO TID 01/21/17 [History] Gabapentin [Neurontin] 800 mg PO TID 01/21/17 [History] Omeprazole Magnesium [Prilosec Otc] 20 mg PO DAILY 01/21/17 [History] Simvastatin [Zocor] 40 mg PO BEDTIME 01/21/17 [History] buPROPion HCL [Wellbutrin Xl] 150 mg PO QAM 01/21/17 [History] Fenofibrate Nanocrystallized [Fenofibrate] 1 tab PO ASDIRECTED 11/04/18 [History] Fluticasone/Vilanterol [Breo Ellipta 100-25 MCG Inhalation Kit] 1 puff INH TID 11/04/18 [History] methocarbamoL [Methocarbamol] 1 tab PO ASDIRECTED 11/04/18 [History] Propranolol HCl 10 mg PO DAILY 09/03/19 [History] ziprasidone HCL [Ziprasidone HCl] 20 mg PO DAILY 09/03/19 [History] Acetaminophen/HYDROcodone [[place] 325-5 MG] 1 tab PO Q4H PRN #10 tab 09/21/19 [Rx] Budesonide/Formoterol [Symbicort 160-4.5 MCG] 2 puff INH BID 09/21/19 [History] Montelukast [Singulair] 10 mg PO DAILY 09/21/19 [History] predniSONE 20 mg PO DAILY 09/21/19 [History] Past Medical History HEENT History: Reports: Impaired Vision Cardiovascular History: Reports: High Cholesterol Respiratory History: Reports: Asthma, COPD Gastrointestinal History: Reports: None Genitourinary History: Reports: None Musculoskeletal History: Reports: Arthritis, Back Pain, Chronic Other Musculoskeletal History: s/p ALIF 01-25-17. right hand pain Neurological History: Reports: None Psychiatric History: Reports: Depression Endocrine/Metabolic History: Reports: None Hematologic History: Reports: Blood Transfusion(s), Other (See Below) Other Hematologic History: as a baby Immunologic History: Reports: None Oncologic (Cancer) History: Reports: None Dermatologic History: Reports: Other (See Below) Other Dermatologic History: R index finger cut - Infectious Disease History Infectious Disease History: Reports: Chicken Pox, Measles, Mumps - Past Surgical History HEENT Surgical History: Reports: Tonsillectomy GI Surgical History: Reports: Hernia, Abdominal Musculoskeletal Surgical History: Reports: None Social & Family History - Family History Family Medical History: Noncontributory - Tobacco Use Smoking Status *Q: Current Every Day Smoker Years of Tobacco use: 35 Packs/Tins Daily: 0.5 - Caffeine Use Caffeine Use: Reports: Coffee - Recreational Drug Use Recreational Drug Use: Yes Recreational Drug Type: Reports: Marijuana/Hashish Recreational Drug Use Frequency: Daily ED ROS GENERAL - Review of Systems Review Of Systems: Comprehensive ROS is negative, except as noted in HPI. ED EXAM, GENERAL - Physical Exam Exam: See Below Exam Limited By: No Limitations General Appearance: Alert, WD/WN, No Apparent Distress Head: Atraumatic, Normocephalic Neck: Normal Inspection, Supple, Non-Tender, Full Range of Motion Respiratory/Chest: No Respiratory Distress, No Accessory Muscle Use, Chest Non- Tender, Crackles, Rales Cardiovascular: Normal Peripheral Pulses, Regular Rate, Rhythm, No Edema, No Gallop, No JVD, No Murmur, No Rub GI/Abdominal: Normal Bowel Sounds, Soft, Non-Tender, No Organomegaly, No Distention, No Abnormal Bruit, No Mass Extremities: Normal Inspection, Normal Range of Motion, Non-Tender, Normal Capillary Refill, No Pedal Edema Neurological: Alert, Oriented, CN II-XII Intact, Normal Cognition, Normal Gait, Normal Reflexes, No Motor/Sensory Deficits Course - Vital Signs Last Recorded V/S: Last Vital Signs Temp 37.3 C 10/23/19 21:49 Pulse 84 10/24/19 00:57 Resp 16 10/23/19 22:18 BP 151/73 H 10/24/19 00:57 Pulse Ox 96 10/24/19 00:57 - Orders/Labs/Meds Orders: Active Orders 24 hr Category Date Time Status Cardiac Monitoring [RC] .As Directed Care 10/23/19 21:52 Active EKG Documentation Completion [RC] ASDIRECTED Care 10/23/19 21:53 Active RT Aerosol Therapy [RC] ASDIRECTED Care 10/23/19 22:04 Active Chest 1V Frontal [CR] Stat Exams 10/23/19 21:53 Taken Iopamidol [Isovue-370 (76%)] Med 10/23/19 23:00 Active 100 ml IV . DIRECTED Nitroglycerin [Nitrostat] Med 10/23/19 21:52 Active 0.4 mg SL Q5M PRN Sodium Chloride 0.9% [Normal Saline] 1,000 ml Med 10/24/19 00:07 Active IV .BOLUS EKG 12 Lead [EK] Stat Ther 10/23/19 21:53 Ordered Medication Orders Sodium Chloride (Normal Saline) 1,000 mls @ 999 mls/hr IV .BOLUS STA Stop: 10/24/19 01:07 Iopamidol (Isovue-370 (76%)) 100 ml IV . DIRECTED [facility] Last Admin: 10/23/19 23:04 Dose: 100 ml Documented by: Admin: 10/23/19 23:03 Dose: 100 ml Documented by: BIPIN Nitroglycerin (Nitrostat) 0.4 mg SL Q5M PRN PRN Reason: Chest Pain Stop: 10/24/19 21:52 Last Admin: 10/23/19 22:12 Dose: 0.4 mg Documented by: KLEIJEA Labs: Laboratory Tests 10/23/19 10/23/19 10/23/19 Range/Units 22:03 22:03 22:03 WBC 16.7 H (4.5-11.0) K/uL RBC 4.65 (4.30-5.90) M/uL Hgb 14.1 (12.0-15.0) g/dL Hct 42.8 (40.0-54.0) % MCV 92 (80-98) fL MCH 30 (27-31) pg MCHC 33 (32-36) % Plt Count 315 (150-400) K/uL Neut % (Auto) 80 H (36-66) % Lymph % (Auto) 13 L (24-44) % Lynn % (Auto) 6 (2-6) % Eos % (Auto) 2 (2-4) % Baso % (Auto) 0 (0-1) % PT 10.6 (9.5-12.0) sec INR 0.98 (0.80-1.20) D-Dimer, Quantitative 811 H (0.0-400.0) ng/mL Sodium (140-148) mmol/L Potassium (3.6-5.2) mmol/L Chloride (100-108) mmol/L Carbon Dioxide (21-32) mmol/L Anion Gap (5.0-14.0) mmol/L BUN (7-18) mg/dL Creatinine (0.8-1.3) mg/dL Est Cr Clr Drug Dosing mL/min Estimated GFR (MDRD) (>60) Glucose (74-106) mg/dL Calcium (8.5-10.1) mg/dL Magnesium (1.8-2.4) mg/dL Total Bilirubin (0.2-1.0) mg/dL AST (15-37) U/L ALT (12-78) U/L Alkaline Phosphatase (46-116) U/L Troponin I (0.000-0.056) ng/mL NT-Pro-B Natriuret Pep (5-125) pg/mL Total Protein (6.4-8.2) g/dL Albumin (3.4-5.0) g/dL Globulin (2.3-3.5) g/dL Albumin/Globulin Ratio (1.2-2.2) 10/23/19 Range/Units 22:03 WBC (4.5-11.0) K/uL RBC (4.30-5.90) M/uL Hgb (12.0-15.0) g/dL Hct (40.0-54.0) % MCV (80-98) fL MCH (27-31) pg MCHC (32-36) % Plt Count (150-400) K/uL Neut % (Auto) (36-66) % Lymph % (Auto) (24-44) % Lynn % (Auto) (2-6) % Eos % (Auto) (2-4) % Baso % (Auto) (0-1) % PT (9.5-12.0) sec INR (0.80-1.20) D-Dimer, Quantitative (0.0-400.0) ng/mL Sodium 137 L (140-148) mmol/L Potassium 3.7 (3.6-5.2) mmol/L Chloride 101 (100-108) mmol/L Carbon Dioxide 24 (21-32) mmol/L Anion Gap 15.7 H (5.0-14.0) mmol/L BUN 13 (7-18) mg/dL Creatinine 1.3 (0.8-1.3) mg/dL Est Cr Clr Drug Dosing 74.62 mL/min Estimated GFR (MDRD) 58 L (>60) Glucose 127 H (74-106) mg/dL Calcium 8.6 (8.5-10.1) mg/dL Magnesium 1.7 L (1.8-2.4) mg/dL Total Bilirubin 0.5 D (0.2-1.0) mg/dL AST 19 (15-37) U/L ALT 18 (12-78) U/L Alkaline Phosphatase 92 (46-116) U/L Troponin I < 0.017 (0.000-0.056) ng/mL NT-Pro-B Natriuret Pep 251 H (5-125) pg/mL Total Protein 6.8 (6.4-8.2) g/dL Albumin 3.1 L (3.4-5.0) g/dL Globulin 3.7 H (2.3-3.5) g/dL Albumin/Globulin Ratio 0.8 L (1.2-2.2) Meds: Medications Generic Name Dose Route Start Last Admin Trade Name Freq PRN Reason Stop Dose Admin Sodium Chloride 1,000 mls @ 999 mls/hr 10/24/19 00:07 Normal Saline IV 10/24/19 01:07 .BOLUS STA Iopamidol 100 ml 10/23/19 23:00 10/23/19 23:04 Isovue-370 (76%) IV 100 ml . DIRECTED BRISA Administration Nitroglycerin 0.4 mg 10/23/19 21:52 10/23/19 22:12 Nitrostat SL 10/24/19 21:52 0.4 mg Q5M PRN Administration Chest Pain Discontinued Medications Generic Name Dose Route Start Last Admin Trade Name Freq PRN Reason Stop Dose Admin Albuterol/Ipratropium 3 ml 10/23/19 22:04 10/23/19 22:12 Duoneb 3.0-0.5 Mg/3 Ml NEB 10/23/19 22:05 3 ml ONETIME ONE Administration Aspirin 324 mg 10/23/19 21:52 10/23/19 22:01 Aspirin PO 10/23/19 21:53 Not Given ONETIME ONE Sodium Chloride 100 mls @ 4 mls/min 10/23/19 22:46 10/23/19 23:03 Normal Saline IV 10/23/19 23:10 4 mls/min ASDIRECTED STA Administration - Radiology Interpretation Free Text/Narrative:: Patient was seen and examined shortly after arrival. Stable. Given aspirin and n itroglycerin by EMS. I did order a DuoNeb for him. EKG, lab and imaging reviewed with the patient. EKG shows no sign of acute ischemia or arrhythmia. Troponin is negative. Elevated d-dimer. CT angiogram shows bilateral extensive groundglass opacity concerning for viral pneumonia. Pulmonary embolism cannot be completely ruled out. Elevated white count with left shift. We do not have any bed available. We are on diverged for admission. Patient started on azithromycin and Rocephin after consulted with Dr. Ruiz hospitalist education liaison at [facility]. Also patient will be tested focal. At [facility] since our test is a sent out. Patient agrees with the plan. Stable for transfer. Departure - Departure Time of Disposition: 01:05 Disposition: DC/Tfer to Acute Hospital 02 Reason for Transfer *Q: Other (we are on divert) Condition: Fair Clinical Impression: Chest pain, Pneumonia Referrals: Nehal Callaway PA [Primary Care Provider] - Forms: ED Department Discharge Sepsis Event Note (ED) - Evaluation Sepsis Screening Result: No Definite Risk - Focused Exam Vital Signs: Vital Signs Temp Pulse Resp BP BP Pulse Ox 10/24/19 00:57 84 151/73 H 96 10/24/19 00:00 91 154/86 H 94 L 10/23/19 23:00 88 143/71 H 96 10/23/19 22:18 93 16 128/64 92 L 10/23/19 22:12 128/72 10/23/19 21:49 37.3 C 96 26 H 130/73 96 - My Orders Last 24 Hours: My Active Orders 10/23/19 21:52 Cardiac Monitoring [RC] .As Directed Nitroglycerin [Nitrostat] 0.4 mg SL Q5M PRN 10/23/19 21:53 EKG Documentation Completion [RC] ASDIRECTED Chest 1V Frontal [CR] Stat EKG 12 Lead [EK] Stat 10/23/19 22:04 RT Aerosol Therapy [RC] ASDIRECTED 10/23/19 23:00 Iopamidol [Isovue-370 (76%)] 100 ml IV . DIRECTED 10/24/19 00:07 Sodium Chloride 0.9% [Normal Saline] 1,000 ml IV .BOLUS - Assessment/Plan Last 24 Hours: My Active Orders 10/23/19 21:52 Cardiac Monitoring [RC] .As Directed Nitroglycerin [Nitrostat] 0.4 mg SL Q5M PRN 10/23/19 21:53 EKG Documentation Completion [RC] ASDIRECTED Chest 1V Frontal [CR] Stat EKG 12 Lead [EK] Stat 10/23/19 22:04 RT Aerosol Therapy [RC] ASDIRECTED 10/23/19 23:00 Iopamidol [Isovue-370 (76%)] 100 ml IV . DIRECTED 10/24/19 00:07 Sodium Chloride 0.9% [Normal Saline] 1,000 ml IV .BOLUS Plan: Transferred to [facility]
[2019-10-23] MEDS ORDERED: Albuterol/Ipratropium 3.0-0.5 MG/3 ML Neb Soln NEB ONE (22:04)
[2019-10-23] MEDS ORDERED: Sodium Chloride 0.9% 100 ML IV STA (22:46)
[2019-10-23] MEDS: Iopamidol 755 Mg/ML 100 ML Bottle IV SCH ×2 (23:03→23:04)
--- NOTE | 2019-10-23 23:51 | CRLCT ---
INDICATION: Chest pain TECHNIQUE: CT chest PE was acquired with 100 cc Isovue 370 intravenous contrast. COMPARISON: None. FINDINGS: Heart and vasculature: Pulmonary artery is normal in caliber. There is inadequate opacification of the pulmonary artery (84 HU) and examination is considered nondiagnostic. Thoracic aorta is normal in caliber with minimal atherosclerotic calcification. No pericardial effusion. Lungs and pleural: No pleural effusion or pneumothorax. Bilateral ground-glass opacities, greater within the right lung with intervening areas of normal lung. Lymph nodes/mediastinum: No mediastinal, hilar, or axillary adenopathy. Chest wall: No masses. Upper abdomen: Normal. Bones: Unremarkable for age. IMPRESSION: 1. Nondiagnostic evaluation for pulmonary embolus due to inadequate opacification of the pulmonary artery. 2. Extensive bilateral ground-glass opacities, greatest within the right lung suspicious for a viral pneumonia. Please note that all CT scans at this facility use dose modulation, iterative reconstruction, and/or weight-based dosing when appropriate to reduce radiation dose to as low as reasonably achievable. Dictated by Dutch Dale MD @ Oct 23 2019 11:44PM Signed by Dr. Dutch Dale @ Oct 23 2019 11:49PM
[2019-10-24] MEDS ORDERED: Sodium Chloride 0.9% 1,000 ML IV STA (00:07)
[2019-10-24] MEDS ORDERED: Azithromycin 500 MG in Sodium Chloride 0.9% 250 ML IV ONE (01:08)
[2019-10-24] MEDS ORDERED: cefTRIAXone 1 GM in Sodium Chloride 0.9% 50 ML IV ONE (01:08)
[2019-10-24 02:07] VITALS: BP 140/80; PULSE 75
--- NOTE | 2019-10-24 09:24 | CR ---
CHEST: Portable 10/23/2019 at 1010 CLINICAL HISTORY:Chest pain COMPARISON:None FINDINGS: Heart size is normal. Pulmonary vascularity is cephalized. There is generalized increase of the interstitial markings. There are no effusions Impression: Mild vascular cephalization and interstitial prominence may represent pulmonary venous hypertension 3 Upright two-view chest is recommended when patient's condition allows
== END 2019-10-24 02:31 ==
LOC: JP.ED 21:42
DX: J18.9 Pneumonia, unspecified organism (principal); E78.00 Pure hypercholesterolemia, unspecified; J44.9 Chronic obstructive pulmonary disease, unspecified; F32.9 Major depressive disorder, single episode, unspecified; F17.210 Nicotine dependence, cigarettes, uncomplicated; Z79.899 Other long term (current) drug therapy
CPT/HCPCS: 36415; 71045; 71045-26; 71275; 80053; 83735; 83880; 84484; 85025; 85379; 85610; 93005; 94640; 96365; 96367; 99285-25; A9270-GY; J0456; J0696; J7030; J7050; J7620-GY; Q9967

== ENCOUNTER 2020-01-24 11:04 | Emergency (ER) | payer MEDICAID ==
[2020-01-24 11:19] VITALS: BP 128/76; PULSE 65
--- NOTE | 2020-01-24 11:50 | EDM.PDOC ---
ED HPI GENERAL MEDICAL PROBLEM - General Chief Complaint: Respiratory Problem Stated Complaint: SHORTNESS OF BREATH Time Seen by Provider: 01/24/20 11:49 Source of Information: Reports: Patient History Limitations: Reports: No Limitations - History of Present Illness INITIAL COMMENTS - FREE TEXT/NARRATIVE: 49 years old male patient presented to the ER with a chief complaint of productive cough with creamy sputum, shortness breath and chest tightness that has been going on for almost 1 week. Also wheezing. Denies any fever. No recent travel. No sick contact. No history of exposure to covid 19. Denies any chest pain currently. Denies any nausea or vomiting or diaphoresis. Denies any abdominal pain diarrhea or constipation. Denies any urinary symptom. He continued to smoke half-pack a day Back Pain Score (Numeric/FACES): 8 - Related Data Allergies Allergy/AdvReac Type Severity Reaction Status Date / Time No Known Allergies Allergy Verified 01/24/20 11:11 Home Meds: Home Meds Diclofenac Sodium [Voltaren] 1 tab PO TID PRN 06/29/16 [History] Albuterol Sulfate [Proair Hfa] 2 puff INH QID 01/21/17 [History] ClonazePAM [KlonoPIN] 0.5 mg PO BID 01/21/17 [History] Omeprazole Magnesium [Prilosec Otc] 20 mg PO DAILY 01/21/17 [History] Simvastatin [Zocor] 40 mg PO BEDTIME 01/21/17 [History] buPROPion HCL [Wellbutrin Xl] 150 mg PO QAM 01/21/17 [History] Fenofibrate Nanocrystallized [Fenofibrate] 1 tab PO DAILY 11/04/18 [History] methocarbamoL [Methocarbamol] 1 tab PO QID PRN 11/04/18 [History] Propranolol HCl 10 mg PO DAILY 09/03/19 [History] ziprasidone HCL [Ziprasidone HCl] 20 mg PO DAILY 09/03/19 [History] Acetaminophen/HYDROcodone [[place] 325-5 MG] 1 tab PO Q4H PRN #10 tab 09/21/19 [Rx] Budesonide/Formoterol [Symbicort 160-4.5 MCG] 2 puff INH BID 09/21/19 [History] Montelukast [Singulair] 10 mg PO DAILY 09/21/19 [History] Gabapentin [Neurontin] 1 tab PO TID 10/24/19 [History] busPIRone HCl [busPIRone] 1 tab PO DAILY 10/24/19 [History] Albuterol [Proventil Neb Soln] 1 ampule INH Q6H 01/24/20 [History] Past Medical History HEENT History: Reports: Impaired Vision Cardiovascular History: Reports: High Cholesterol Respiratory History: Reports: Asthma, COPD Gastrointestinal History: Reports: None Genitourinary History: Reports: None Musculoskeletal History: Reports: Arthritis, Back Pain, Chronic Other Musculoskeletal History: s/p ALIF 01-25-17. right hand pain Neurological History: Reports: None Psychiatric History: Reports: Depression Endocrine/Metabolic History: Reports: None Hematologic History: Reports: Blood Transfusion(s), Other (See Below) Other Hematologic History: as a baby Immunologic History: Reports: None Oncologic (Cancer) History: Reports: None Dermatologic History: Reports: Other (See Below) Other Dermatologic History: R index finger cut - Infectious Disease History Infectious Disease History: Reports: Chicken Pox, Measles, Mumps - Past Surgical History HEENT Surgical History: Reports: Tonsillectomy GI Surgical History: Reports: Hernia, Abdominal Musculoskeletal Surgical History: Reports: None Social & Family History - Family History Family Medical History: Noncontributory - Tobacco Use Smoking Status *Q: Current Every Day Smoker Years of Tobacco use: 32 Packs/Tins Daily: 0.5 - Caffeine Use Caffeine Use: Reports: Coffee - Recreational Drug Use Recreational Drug Use: Yes Recreational Drug Type: Reports: Marijuana/Hashish Recreational Drug Use Frequency: Daily ED ROS GENERAL - Review of Systems Review Of Systems: Comprehensive ROS is negative, except as noted in HPI. ED EXAM, GENERAL - Physical Exam Exam: See Below Exam Limited By: No Limitations General Appearance: Alert, WD/WN, No Apparent Distress Nose: Normal Inspection, Normal Mucosa, No Blood Throat/Mouth: Normal Inspection, Normal Lips, Normal Teeth, Normal Gums, Normal Oropharynx, Normal Voice, No Airway Compromise Head: Atraumatic, Normocephalic Neck: Normal Inspection, Supple, Non-Tender, Full Range of Motion Respiratory/Chest: No Respiratory Distress, Chest Non-Tender, Wheezing. No: Respiratory Distress, Crackles, Rales, Rhonchi, Stridor, Retractions GI/Abdominal: Normal Bowel Sounds, Soft, Non-Tender, No Organomegaly, No Distention, No Abnormal Bruit, No Mass Extremities: Normal Inspection, Normal Range of Motion, Non-Tender, Normal Capillary Refill, No Pedal Edema Neurological: Alert, Oriented, CN II-XII Intact, Normal Cognition, Normal Gait, Normal Reflexes, No Motor/Sensory Deficits Course - Vital Signs Last Recorded V/S: Last Vital Signs Temp 36.2 C 01/24/20 11:18 Pulse 65 01/24/20 11:18 Resp 16 01/24/20 11:18 BP 128/76 01/24/20 11:18 Pulse Ox 97 01/24/20 11:18 - Orders/Labs/Meds Orders: Active Orders 24 hr Category Date Time Status EKG Documentation Completion [RC] ASDIRECTED Care 01/24/20 11:57 Active EKG 12 Lead [EK] Urgent Ther 01/24/20 11:55 Ordered Labs: Laboratory Tests 01/24/20 01/24/20 01/24/20 Range/Units 12:14 12:14 12:14 WBC 9.3 (4.5-11.0) K/uL RBC 4.53 (4.30-5.90) M/uL Hgb 14.0 (12.0-15.0) g/dL Hct 42.2 (40.0-54.0) % MCV 93 (80-98) fL MCH 31 (27-31) pg MCHC 33 (32-36) % Plt Count 209 (150-400) K/uL Neut % (Auto) 52 (36-66) % Lymph % (Auto) 33 (24-44) % [place] % (Auto) 9 H (2-6) % Eos % (Auto) 5 H (2-4) % Baso % (Auto) 1 (0-1) % Sodium 141 (140-148) mmol/L Potassium 4.4 (3.6-5.2) mmol/L Chloride 106 (100-108) mmol/L Carbon Dioxide 30 (21-32) mmol/L Anion Gap 5.0 (5.0-14.0) mmol/L BUN 19 H (7-18) mg/dL Creatinine 1.4 H (0.8-1.3) mg/dL Est Cr Clr Drug Dosing 69.29 mL/min Estimated GFR (MDRD) 54 L (>60) Glucose 130 H (74-106) mg/dL Lactic Acid < 0.4 L (0.4-2.0) mmol/L Calcium 8.3 L (8.5-10.1) mg/dL Total Bilirubin 0.3 (0.2-1.0) mg/dL AST 21 (15-37) U/L ALT 28 (12-78) U/L Alkaline Phosphatase 98 (46-116) U/L Troponin I < 0.017 (0.000-0.056) ng/mL NT-Pro-B Natriuret Pep (5-125) pg/mL Total Protein 6.3 L (6.4-8.2) g/dL Albumin 3.3 L (3.4-5.0) g/dL Globulin 3.0 (2.3-3.5) g/dL Albumin/Globulin Ratio 1.1 L (1.2-2.2) 01/24/20 Range/Units 12:14 WBC (4.5-11.0) K/uL RBC (4.30-5.90) M/uL Hgb (12.0-15.0) g/dL Hct (40.0-54.0) % MCV (80-98) fL MCH (27-31) pg MCHC (32-36) % Plt Count (150-400) K/uL Neut % (Auto) (36-66) % Lymph % (Auto) (24-44) % [place] % (Auto) (2-6) % Eos % (Auto) (2-4) % Baso % (Auto) (0-1) % Sodium (140-148) mmol/L Potassium (3.6-5.2) mmol/L Chloride (100-108) mmol/L Carbon Dioxide (21-32) mmol/L Anion Gap (5.0-14.0) mmol/L BUN (7-18) mg/dL Creatinine (0.8-1.3) mg/dL Est Cr Clr Drug Dosing mL/min Estimated GFR (MDRD) (>60) Glucose (74-106) mg/dL Lactic Acid (0.4-2.0) mmol/L Calcium (8.5-10.1) mg/dL Total Bilirubin (0.2-1.0) mg/dL AST (15-37) U/L ALT (12-78) U/L Alkaline Phosphatase (46-116) U/L Troponin I (0.000-0.056) ng/mL NT-Pro-B Natriuret Pep 130 H (5-125) pg/mL Total Protein (6.4-8.2) g/dL Albumin (3.4-5.0) g/dL Globulin (2.3-3.5) g/dL Albumin/Globulin Ratio (1.2-2.2) Meds: Medications Discontinued Medications Generic Name Dose Route Start Last Admin Trade Name Freq PRN Reason Stop Dose Admin Methylprednisolone Sodium Succinate 125 mg 01/24/20 11:53 01/24/20 12:29 Solu-Medrol IV 01/24/20 11:54 125 mg ONETIME ONE Administration - Radiology Interpretation Free Text/Narrative:: Patient was seen and examined shortly after arrival. Stable. Given 125 mg of Solu-Medrol. Lab and imaging reviewed with the patient. No significant acute abnormalities. This is most likely acute COPD exacerbation. Patient refused admission. He is not hypoxic. No respiratory distress. He is afebrile, hemodynamically stable. Given a prescription for prednisone and azithromycin. Advised to Rest and stay well-hydrated Close follow up with PCP Come back for any concern or any worsening symptom Stop smoking Patient agrees with the plan. Stable for discharge. Departure - Departure Time of Disposition: 13:39 Disposition: Home, Self-Care 01 Condition: Good Clinical Impression: COPD with acute exacerbation, Bronchitis - Discharge Information Instructions: Chronic Obstructive Pulmonary Disease Exacerbation, Acute Bronchitis, Adult, [id number] Referrals: PCP,None [Primary Care Provider] - Forms: ED Department Discharge Additional Instructions: Rest and stay well-hydrated Close follow up with PCP Come back for any concern or any worsening symptom Stop smoking Sepsis Event Note (ED) - Evaluation Sepsis Screening Result: No Definite Risk - Focused Exam Vital Signs: Vital Signs Temp Pulse Resp BP Pulse Ox 01/24/20 11:18 36.2 C 65 16 128/76 97 - My Orders Last 24 Hours: My Active Orders 01/24/20 11:55 EKG 12 Lead [EK] Urgent 01/24/20 11:57 EKG Documentation Completion [RC] ASDIRECTED - Assessment/Plan Last 24 Hours: My Active Orders 01/24/20 11:55 EKG 12 Lead [EK] Urgent 01/24/20 11:57 EKG Documentation Completion [RC] ASDIRECTED Plan: Rest and stay well-hydrated Close follow up with PCP Come back for any concern or any worsening symptom Stop smoking
[2020-01-24] MEDS ORDERED: methylPREDNISolone Sodium Succinate 125 MG/2 ML SDV IV ONE (11:53)
--- NOTE | 2020-01-24 13:25 | CR ---
CHEST: 2 view CLINICAL HISTORY:SOB COMPARISON:October 2019 FINDINGS: There is mild generalized the interstitial prominence. This is actually diminished when compared to prior study. Heart size and pulmonary vascularity are normal. There are no pleural effusions IMPRESSION: Mild generalized interstitial prominence is felt to be chronic. It actually has diminished since the September study
== END 2020-01-24 14:09 | disposition home or self-care (01) ==
LOC: JP.ED 11:04
DX: J44.1 Chronic obstructive pulmonary disease with (acute) exacerbation (principal); F32.9 Major depressive disorder, single episode, unspecified; E78.00 Pure hypercholesterolemia, unspecified; F17.210 Nicotine dependence, cigarettes, uncomplicated; Z79.899 Other long term (current) drug therapy
CPT/HCPCS: 36415; 71046; 80053; 83605; 83880; 84484; 85025; 93005; 96374; 99285; J2930

== ENCOUNTER 2020-01-31 15:33 | Emergency (ER) | payer MEDICAID ==
[2020-01-31 15:57] VITALS: BP 97/69; PULSE 64
[2020-01-31] MEDS ORDERED: Albuterol/Ipratropium 3.0-0.5 MG/3 ML Neb Soln NEB ONE (16:26)
--- NOTE | 2020-01-31 16:28 | EDM.PDOC ---
ED HPI GENERAL MEDICAL PROBLEM - General Chief Complaint: Respiratory Problem Stated Complaint: WHEEZING, SHORT OF BREATH, CHEST FEELS COMPRESSED Time Seen by Provider: 01/31/20 16:15 Source of Information: Reports: Patient, Old Records History Limitations: Reports: No Limitations - History of Present Illness INITIAL COMMENTS - FREE TEXT/NARRATIVE: 49 yo male cigarette smoker presents with SOB and cough over the past few days. No fever. Cough is nonproductive. Is using his usual meds with minimal relief. Has not been to the clinic for this. Onset: Gradual Duration: Day(s):, Getting Worse Location: Reports: Chest Quality: Reports: Other (no pain) Severity: Moderate Improves with: Reports: Rest Worsens with: Reports: Other (activity) Context: Reports: Other (See HPI) Associated Symptoms: Reports: Cough, Shortness of Breath. 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) (usual meds only) - Related Data Allergies Allergy/AdvReac Type Severity Reaction Status Date / Time No Known Allergies Allergy Verified 01/31/20 16:06 Home Meds: Home Meds Diclofenac Sodium [Voltaren] 1 tab PO TID PRN 06/29/16 [History] Albuterol Sulfate [Proair Hfa] 2 puff INH QID 01/21/17 [History] ClonazePAM [KlonoPIN] 0.5 mg PO BID 01/21/17 [History] Omeprazole Magnesium [Prilosec Otc] 20 mg PO DAILY 01/21/17 [History] Simvastatin [Zocor] 40 mg PO BEDTIME 01/21/17 [History] buPROPion HCL [Wellbutrin Xl] 150 mg PO QAM 01/21/17 [History] Fenofibrate Nanocrystallized [Fenofibrate] 1 tab PO DAILY 11/04/18 [History] methocarbamoL [Methocarbamol] 1 tab PO QID PRN 11/04/18 [History] Propranolol HCl 10 mg PO DAILY 09/03/19 [History] ziprasidone HCL [Ziprasidone HCl] 20 mg PO DAILY 09/03/19 [History] Acetaminophen/HYDROcodone [[place] 325-5 MG] 1 tab PO Q4H PRN #10 tab 09/21/19 [Rx] Budesonide/Formoterol [Symbicort 160-4.5 MCG] 2 puff INH BID 09/21/19 [History] Montelukast [Singulair] 10 mg PO DAILY 09/21/19 [History] Gabapentin [Neurontin] 1 tab PO TID 10/24/19 [History] busPIRone HCl [busPIRone] 1 tab PO DAILY 10/24/19 [History] Albuterol [Proventil Neb Soln] 1 ampule INH Q6H 01/24/20 [History] Past Medical History HEENT History: Reports: Impaired Vision Cardiovascular History: Reports: High Cholesterol Respiratory History: Reports: Asthma, COPD Gastrointestinal History: Reports: GERD Genitourinary History: Reports: None Musculoskeletal History: Reports: Arthritis, Back Pain, Chronic Other Musculoskeletal History: s/p ALIF 01-25-17. right hand pain Neurological History: Reports: None Psychiatric History: Reports: Depression Endocrine/Metabolic History: Reports: None Hematologic History: Reports: Blood Transfusion(s), Other (See Below) Other Hematologic History: as a baby Immunologic History: Reports: None Oncologic (Cancer) History: Reports: None Dermatologic History: Reports: Other (See Below) Other Dermatologic History: R index finger cut - Infectious Disease History Infectious Disease History: Reports: Chicken Pox, Measles, Mumps - Past Surgical History Head Surgeries/Procedures: Reports: None HEENT Surgical History: Reports: Tonsillectomy Cardiovascular Surgical History: Reports: None Respiratory Surgical History: Reports: None GI Surgical History: Reports: Appendectomy, Hernia, Abdominal Neurological Surgical History: Reports: Vertebroplasty Musculoskeletal Surgical History: Reports: None Dermatological Surgical History: Reports: None Social & Family History - Family History Family Medical History: Noncontributory - Tobacco Use Smoking Status *Q: Current Every Day Smoker Years of Tobacco use: 30 Packs/Tins Daily: 0.5 Used Tobacco, but Quit: No Second Hand Smoke Exposure: Yes - Caffeine Use Caffeine Use: Reports: Coffee - Recreational Drug Use Recreational Drug Use: Yes Drug Use in Last 12 Months: Yes Recreational Drug Type: Reports: Marijuana/Hashish Recreational Drug Use Frequency: Weekly ED ROS GENERAL - Review of Systems Review Of Systems: See Below Constitutional: Reports: No Symptoms HEENT: Reports: No Symptoms Respiratory: Reports: Shortness of Breath, Cough. Denies: Wheezing, Pleuritic Chest Pain, Sputum, Hemoptysis Cardiovascular: Reports: No Symptoms GI/Abdominal: Reports: No Symptoms : Reports: No Symptoms Musculoskeletal: Reports: No Symptoms Skin: Reports: No Symptoms Neurological: Reports: No Symptoms ED EXAM, GENERAL - Physical Exam Exam: See Below Exam Limited By: No Limitations General Appearance: Alert, WD/WN, No Apparent Distress Eye Exam: Bilateral Eye: Normal Inspection Ears: Normal External Exam, Normal Canal, Hearing Grossly Normal, Normal TMs Ear Exam: Bilateral Ear: Auricle Normal, Canal Normal, TM normal Nose: Normal Inspection, No Blood Throat/Mouth: Normal Inspection, Normal Lips, Normal Oropharynx, Normal Voice, No Airway Compromise Head: Atraumatic, Normocephalic Neck: Normal Inspection Respiratory/Chest: No Respiratory Distress, No Accessory Muscle Use, Chest Non- Tender, Decreased Breath Sounds, Wheezing. No: Lungs Clear, Normal Breath Sounds Cardiovascular: Regular Rate, Rhythm, No Edema Back Exam: Normal Inspection Extremities: Normal Inspection, Normal Range of Motion, Non-Tender, No Pedal Edema Neurological: Alert, Oriented, CN II-XII Intact, Normal Cognition, No Motor/Sensory Deficits Psychiatric: Normal Affect, Normal Mood Skin Exam: Warm, Dry, Intact, Normal Color, No Rash Course - Vital Signs Last Recorded V/S: Last Vital Signs Temp 36.5 C 01/31/20 16:13 Pulse 64 01/31/20 16:13 Resp 18 01/31/20 15:55 BP 97/69 01/31/20 16:13 Pulse Ox 94 L 01/31/20 16:13 - Orders/Labs/Meds Orders: Active Orders 24 hr Category Date Time Status RT Aerosol Therapy [RC] ASDIRECTED Care 01/31/20 16:26 Active Chest 2V [CR] Stat Exams 01/31/20 16:41 Taken Labs: Laboratory Tests 01/31/20 Range/Units 16:35 WBC 11.6 H (4.5-11.0) K/uL RBC 5.00 (4.30-5.90) M/uL Hgb 15.0 (12.0-15.0) g/dL Hct 46.1 (40.0-54.0) % MCV 92 (80-98) fL MCH 30 (27-31) pg MCHC 33 (32-36) % Plt Count 236 (150-400) K/uL Meds: Medications Discontinued Medications Generic Name Dose Route Start Last Admin Trade Name Freq PRN Reason Stop Dose Admin Albuterol/Ipratropium 3 ml 01/31/20 16:26 01/31/20 16:31 Duoneb 3.0-0.5 Mg/3 Ml NEB 01/31/20 16:27 3 ml ONETIME ONE Administration - Radiology Interpretation Free Text/Narrative:: CXR-neg - Re-Assessments/Exams Free Text/Narrative Re-Assessment/Exam: 01/31/20 17:22 Lungs more clear after his neb. Departure - Departure Time of Disposition: 17:30 Disposition: Home, Self-Care 01 Condition: Fair Clinical Impression: Bronchospasm - Discharge Information *PRESCRIPTION DRUG MONITORING PROGRAM REVIEWED*: No *COPY OF PRESCRIPTION DRUG MONITORING REPORT IN PATIENT ELIUD: No Instructions: Bronchospasm, Adult, [id number] Referrals: Nehal Callaway PA [Primary Care Provider] - Forms: ED Department Discharge Additional Instructions: No smoking. Take prednisone as directed. Recheck with your provider on Tuesday, call for an appt. Return for a fever. Continue your other meds as prescribed. Sepsis Event Note (ED) - Evaluation Sepsis Screening Result: No Definite Risk - Focused Exam Vital Signs: Vital Signs Temp Pulse Resp BP Pulse Ox 01/31/20 16:13 36.5 C 64 97/69 94 L 01/31/20 15:55 36.5 C 64 18 97/69 94 L - My Orders Last 24 Hours: My Active Orders 01/31/20 16:26 RT Aerosol Therapy [RC] ASDIRECTED 01/31/20 16:41 Chest 2V [CR] Stat - Assessment/Plan Last 24 Hours: My Active Orders 01/31/20 16:26 RT Aerosol Therapy [RC] ASDIRECTED 01/31/20 16:41 Chest 2V [CR] Stat
--- NOTE | 2020-02-01 09:31 | CR ---
CHEST: 2 view CLINICAL HISTORY:Chest pressure COMPARISON:01/24/2020 FINDINGS: The heart size, pulmonary vascularity and hilar structures are normal. No infiltrate effusion or pneumothorax is seen. There is minimal streaky density in the region of the lingula which is likely some scarring and streaky atelectasis IMPRESSION: No acute cardiopulmonary process.
== END 2020-01-31 17:30 | disposition home or self-care (01) ==
LOC: JP.ED 15:33
DX: J98.01 Acute bronchospasm (principal); F17.210 Nicotine dependence, cigarettes, uncomplicated; E78.00 Pure hypercholesterolemia, unspecified; J44.9 Chronic obstructive pulmonary disease, unspecified; K21.9 Gastro-esophageal reflux disease without esophagitis; F32.9 Major depressive disorder, single episode, unspecified; Z79.899 Other long term (current) drug therapy
CPT/HCPCS: 36415; 71046; 71046-26; 85027; 94640; 99284; 99285-25; J7620-GY

== ENCOUNTER 2020-07-03 06:35 | Day surgery (SDC) | payer MEDICAID ==
[2020-07-03] MEDS ORDERED: Propofol 200 MG/20 ML SDV ONE (07:41)
[2020-07-03] MEDS ORDERED: fentaNYL 100 MCG/2 ML SDV ONE (07:41)
[2020-07-03] MEDS ORDERED: Midazolam 1 MG/ML 2 ML SDV ONE (07:41)
[2020-07-03] MEDS ORDERED: Sodium Chloride 0.9% 1,000 ML IV SCH (07:45)
[2020-07-03 09:09] VITALS: BP 123/85; PULSE 73
--- NOTE | 2020-07-03 09:51 | OR ---
DATE OF PROCEDURE: 07/03/2020 SURGEON: Kristopher Ortiz MD PROCEDURE: Colonoscopy. FINDINGS: Normal colonoscopy. COMPLICATIONS: None. 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 ANESTHESIA: MAC. PREOPERATIVE DIAGNOSIS: Screening colonoscopy. POSTOPERATIVE DIAGNOSIS: Screening colonoscopy. RISKS: Risks, benefits, alternatives, and limitations including, but not limited to infection, bleeding, and perforation along with false positives and false negatives were explained to the patient who wished to proceed. PROCEDURE IN DETAIL: The patient was placed in left lateral decubitus position. Digital rectal exam was performed without abnormality. Scope was introduced atraumatically to the ileocecal valve. A photo was taken of this. Scope was brought back to the ascending, transverse, descending colon, and retroflexed. No evidence of old or new blood. No masses. No polyps. No abnormalities on retroflexion. No diverticulosis. No colitis. The prep was acceptable, approximately 85% of the luminal surface could be seen. Greater than 8 minutes was spent removing the scope. The patient tolerated the procedure well. Kristopher Ortiz MD /[id number]
== END 2020-07-03 09:10 | disposition home or self-care (01) ==
LOC: JP.SDS 06:35
PROVIDERS: ATTEND Surgery
DX: Z12.11 Encounter for screening for malignant neoplasm of colon (principal); J45.909 Unspecified asthma, uncomplicated; F17.210 Nicotine dependence, cigarettes, uncomplicated; E66.9 Obesity, unspecified; Z68.30 Body mass index [BMI] 30.0-30.9, adult
CPT/HCPCS: J2250; J2704; J3010; J7030

== ENCOUNTER 2020-08-21 09:27 | Emergency (ER) | payer MEDICAID ==
[2020-08-21 09:44] VITALS: PULSE 95
[2020-08-21 09:59] VITALS: BP 152/112
[2020-08-21] MEDS ORDERED: Ketorolac 60 MG/2 ML SDV IM ONE (10:06)
--- NOTE | 2020-08-21 10:19 | EDM.PDOC ---
ED HPI GENERAL MEDICAL PROBLEM - General Chief Complaint: ENT Problem Stated Complaint: JAW PAIN TOP LEFT Time Seen by Provider: 08/21/20 09:55 Source of Information: Reports: Patient, Old Records, RN History Limitations: Reports: No Limitations - History of Present Illness INITIAL COMMENTS - FREE TEXT/NARRATIVE: 50 yo male presents with pain to his upper anterior jaw. He had all of his upper teeth removed by a local dentist the beginning of this mos. He had a follow up appt about a week later and was placed on some antibiotic which he has since finished. Over the past few days his pain has been increasing. He took ibuprofen yesterday without relief. He has not called either his dentist or his provider Araseli Callaway about this increase in pain before coming to the ER today. No fever. After a phone call we learned his antibiotic was amox 875 mg bid x 7d. Onset: Gradual Onset Date: 08/18/20 Duration: Day(s):, Getting Worse Location: Reports: Face (mouth) Quality: Reports: Ache Severity: Moderate Improves with: Reports: None Worsens with: Reports: Other (? time or touching area) Context: Reports: Other (See HPI) Associated Symptoms: Reports: No Other Symptoms. Denies: Fever/Chills Treatments DIRECTOR OF BLOOD: Reports: Other (see below) (none since yesterday) - Related Data Allergies Allergy/AdvReac Type Severity Reaction Status Date / Time No Known Allergies Allergy Verified 06/30/20 12:46 Home Meds: Home Meds Albuterol Sulfate [Proair Hfa] 2 puff INH QID 01/21/17 [History] Omeprazole Magnesium [Prilosec Otc] 20 mg PO DAILY 01/21/17 [History] Simvastatin [Zocor] 40 mg PO BEDTIME 01/21/17 [History] buPROPion HCL [Wellbutrin Xl] 150 mg PO QAM 01/21/17 [History] Fenofibrate Nanocrystallized [Fenofibrate] 48 mg PO DAILY 11/04/18 [History] methocarbamoL [Methocarbamol] 750 mg PO QID PRN 11/04/18 [History] Propranolol HCl 10 mg PO DAILY 09/03/19 [History] ziprasidone HCL [Ziprasidone HCl] 20 mg PO DAILY 09/03/19 [History] Budesonide/Formoterol [Symbicort 160-4.5 MCG] 2 puff INH BID 09/21/19 [History] Gabapentin [Neurontin] 600 mg PO TID 10/24/19 [History] busPIRone HCl [busPIRone] 10 mg PO BID 10/24/19 [History] Albuterol [Proventil Neb Soln] 1 ampule INH Q6H 01/24/20 [History] Mometasone/Formoterol [Dulera 200 Mcg/5 Mcg Inhaler] 2 puff IH BID 06/30/20 [History] Clindamycin HCl 300 mg PO TID #20 capsule 08/21/20 [Rx] Past Medical History HEENT History: Reports: Impaired Vision Other HEENT History: wears glasses Cardiovascular History: Reports: High Cholesterol, SOB on Exertion Respiratory History: Reports: Asthma, COPD Gastrointestinal History: Reports: GERD Genitourinary History: Reports: None Musculoskeletal History: Reports: Arthritis, Back Pain, Chronic Other Musculoskeletal History: s/p ALIF 01-25-17. right hand pain Neurological History: Reports: Head Trauma Psychiatric History: Reports: Anxiety, Depression, Psych Hospitalization(s) Endocrine/Metabolic History: Reports: None Hematologic History: Reports: Blood Transfusion(s), Other (See Below) Other Hematologic History: ?as a baby-unknown Immunologic History: Reports: None Oncologic (Cancer) History: Reports: None Dermatologic History: Reports: Other (See Below) Other Dermatologic History: R index finger cut - Infectious Disease History Infectious Disease History: Reports: Chicken Pox, Measles, Mumps - Past Surgical History Head Surgeries/Procedures: Reports: None HEENT Surgical History: Reports: Tonsillectomy Cardiovascular Surgical History: Reports: None Respiratory Surgical History: Reports: None GI Surgical History: Reports: Appendectomy, Hernia, Abdominal Neurological Surgical History: Reports: Vertebroplasty, Other (See Below) Other Neurological Surgeries/Procedures: ALIF Musculoskeletal Surgical History: Reports: None Dermatological Surgical History: Reports: None Social & Family History - Family History Family Medical History: No Pertinent Family History - Tobacco Use Tobacco Use Status *Q: Current Every Day Tobacco User Years of Tobacco use: 30 Packs/Tins Daily: 0.2 - Caffeine Use Caffeine Use: Reports: Coffee, Energy Drinks, Soda, Tea - Recreational Drug Use Recreational Drug Use: Yes Drug Use in Last 12 Months: Yes Recreational Drug Type: Reports: Marijuana/Hashish Recreational Drug Use Frequency: Weekly ED ROS ENT - Review of Systems Review Of Systems: See Below Constitutional: Reports: No Symptoms HEENT: Reports: Other (mouth pain) Respiratory: Reports: No Symptoms Cardiovascular: Reports: No Symptoms GI/Abdominal: Reports: No Symptoms : Reports: No Symptoms Musculoskeletal: Reports: No Symptoms Skin: Reports: No Symptoms ED EXAM, ENT - Physical Exam Exam: See Below Exam Limited By: No Limitations General Appearance: Alert, WD/WN, No Apparent Distress Eye Exam: Bilateral Eye: Normal Inspection Ears: Normal External Exam, Normal Canal, Hearing Grossly Normal Nose: Normal Inspection, No Blood Mouth/Throat: Normal Inspection, Normal Lips, Normal Oropharynx, Other (mucosa appears adequately healed. This area of the upper mandible anteriorly if very tender to touch. ). No: Normal Teeth (all of his upper teeth have been extracted), Bleeding Head: Atraumatic, Normocephalic, Facial Swelling (? very subtle L cheek swelling? No redness. ), Facial Tenderness (R cheek). No: Facial Ecchymosis Neck: Normal Inspection, Non-Tender. No: Lymphadenopathy (R), Lymphadenopathy (L) Respiratory/Chest: No Respiratory Distress, Lungs Clear, Normal Breath Sounds, No Accessory Muscle Use Cardiovascular: Regular Rate, Rhythm, No Edema Extremities: Normal Inspection Neurological: Alert, Oriented, CN II-XII Intact, Normal Cognition, No Erick r/Sensory Deficits Psychiatric: Normal Affect, Normal Mood Skin: Warm, Dry, Intact, Normal Color, No Rash. No: Erythema, Increased Warmth, Wound/Incision Course - Vital Signs Last Recorded V/S: Last Vital Signs Temp 36.5 C 08/21/20 09:58 Pulse 95 08/21/20 09:58 Resp 20 08/21/20 09:43 BP 152/112 H 08/21/20 09:58 Pulse Ox 98 08/21/20 09:58 - Orders/Labs/Meds Labs: Laboratory Tests 08/21/20 08/21/20 Range/Units 10:18 10:18 WBC 12.4 H (4.5-11.0) K/uL RBC 5.60 (4.30-5.90) M/uL Hgb 17.2 H D (12.0-15.0) g/dL Hct 51.5 (40.0-54.0) % MCV 92 (80-98) fL MCH 31 (27-31) pg MCHC 33 (32-36) % Plt Count 292 (150-400) K/uL C-Reactive Protein 0.13 (0.0-0.3) mg/dL Meds: Medications Discontinued Medications Generic Name Dose Route Start Last Admin Trade Name Rigo PRN Reason Stop Dose Admin Ketorolac Tromethamine 60 mg 08/21/20 10:06 08/21/20 10:14 Ketorolac 60 Mg/2 Ml Sdv IM 08/21/20 10:07 60 mg ONETIME ONE Administration Departure - Departure Time of Disposition: 10:42 Disposition: Home, Self-Care 01 Condition: Fair Clinical Impression: Maxillary pain - Discharge Information *PRESCRIPTION DRUG MONITORING PROGRAM REVIEWED*: No *COPY OF PRESCRIPTION DRUG MONITORING REPORT IN PATIENT ELIUD: No Prescriptions: Clindamycin HCl 300 mg PO TID #20 capsule Instructions: Managing Pain Without Opioids Referrals: Nehal Callaway PA [Primary Care Provider] - Forms: ED Department Discharge Additional Instructions: Start Clindamycin(sent to [facility]) and take every 8 hrs. For pain relief take ibuprofen 600 mg every 6 hrs with food and acetaminophen 1000 mg every 6 hrs. See your dentist or Araseli Callaway for follow up before the weekend. Sepsis Event Note (ED) - Evaluation Sepsis Screening Result: No Definite Risk - Focused Exam Vital Signs: Vital Signs Temp Pulse Resp BP Pulse Ox 08/21/20 09:58 36.5 C 95 152/112 H 98 08/21/20 09:43 36.5 C 95 20 139/112 H 98
[2020-08-21] MEDS ORDERED: Acetaminophen 500 MG Tab PO ONE (10:42)
== END 2020-08-21 10:51 | disposition home or self-care (01) ==
LOC: JP.ED 09:27
DX: R68.84 Jaw pain (principal); E78.00 Pure hypercholesterolemia, unspecified; J44.9 Chronic obstructive pulmonary disease, unspecified; K21.9 Gastro-esophageal reflux disease without esophagitis; Z79.899 Other long term (current) drug therapy; Z72.0 Tobacco use
CPT/HCPCS: 36415; 85027; 86140; 96372; 99283; A9270; J1885

== ENCOUNTER 2020-09-07 19:08 | Emergency (ER) | payer MEDICAID ==
[2020-09-07] MEDS ORDERED: Sodium Chloride 0.9% 10 ML Syringe FLUSH PRN (19:27)
[2020-09-07] MEDS ORDERED: Ondansetron 4 MG/2 ML SDV IVPUSH ONE (19:27)
--- NOTE | 2020-09-07 19:28 | EDM.PDOC ---
ED HPI GENERAL MEDICAL PROBLEM - General Chief Complaint: Abdominal Pain Stated Complaint: ABD PAIN Time Seen by Provider: 09/07/20 19:26 Source of Information: Reports: Patient History Limitations: Reports: No Limitations - History of Present Illness INITIAL COMMENTS - FREE TEXT/NARRATIVE: Saji is a 50-year-old male presenting to the ED for evaluation of severe upper abdominal pain that started yesterday. The patient has had diminished appetite and mild nausea but denies any vomiting. His pain is a 10 out of 10 and is sharp and stabbing through the epigastric area radiating to the right upper quadrant. The patient still has his gallbladder. He has never experienced this pain before. He has had issues with his stomach in the past for which he takes a PPI. He denies any fever or chills. He has had loose stools since the onset of the abdominal pain with his last bowel movement being today. Upper Abdominal Pain Score (Numeric/FACES): 9 - Related Data Allergies Allergy/AdvReac Type Severity Reaction Status Date / Time No Known Allergies Allergy Verified 09/07/20 19:25 Home Meds: Home Meds Albuterol Sulfate [Proair Hfa] 2 puff INH QID 01/21/17 [History] Omeprazole Magnesium [Prilosec Otc] 20 mg PO DAILY 01/21/17 [History] Simvastatin [Zocor] 40 mg PO BEDTIME 01/21/17 [History] buPROPion HCL [Wellbutrin Xl] 150 mg PO QAM 01/21/17 [History] Fenofibrate Nanocrystallized [Fenofibrate] 48 mg PO DAILY 11/04/18 [History] methocarbamoL [Methocarbamol] 750 mg PO QID PRN 11/04/18 [History] Propranolol HCl 10 mg PO DAILY 09/03/19 [History] ziprasidone HCL [Ziprasidone HCl] 20 mg PO DAILY 09/03/19 [History] Budesonide/Formoterol [Symbicort 160-4.5 MCG] 2 puff INH BID 09/21/19 [History] Gabapentin [Neurontin] 600 mg PO TID 10/24/19 [History] busPIRone HCl [busPIRone] 10 mg PO BID 10/24/19 [History] Albuterol [Proventil Neb Soln] 1 ampule INH Q6H 01/24/20 [History] Mometasone/Formoterol [Dulera 200 Mcg/5 Mcg Inhaler] 2 puff IH BID 06/30/20 [History] Clindamycin HCl 300 mg PO TID #20 capsule 08/21/20 [Rx] Pantoprazole Sodium [Protonix] 40 mg PO DAILY #30 tablet. 09/08/20 [Rx] Sucralfate [Carafate] 1 gm PO Q6HR #120 tab 09/08/20 [Rx] Past Medical History HEENT History: Reports: Impaired Vision Other HEENT History: wears glasses Cardiovascular History: Reports: High Cholesterol, SOB on Exertion Respiratory History: Reports: Asthma, COPD Gastrointestinal History: Reports: GERD Genitourinary History: Reports: None Musculoskeletal History: Reports: Arthritis, Back Pain, Chronic Other Musculoskeletal History: s/p ALIF 01-25-17. right hand pain Neurological History: Reports: Head Trauma Psychiatric History: Reports: Anxiety, Depression, Psych Hospitalization(s) Endocrine/Metabolic History: Reports: None Hematologic History: Reports: Blood Transfusion(s), Other (See Below) Other Hematologic History: ?as a baby-unknown Immunologic History: Reports: None Oncologic (Cancer) History: Reports: None Dermatologic History: Reports: Other (See Below) Other Dermatologic History: R index finger cut - Infectious Disease History Infectious Disease History: Reports: Chicken Pox, Measles, Mumps - Past Surgical History Head Surgeries/Procedures: Reports: None HEENT Surgical History: Reports: Tonsillectomy Cardiovascular Surgical History: Reports: None Respiratory Surgical History: Reports: None GI Surgical History: Reports: Appendectomy, Hernia, Abdominal Neurological Surgical History: Reports: Vertebroplasty, Other (See Below) Other Neurological Surgeries/Procedures: ALIF Musculoskeletal Surgical History: Reports: None Dermatological Surgical History: Reports: None Social & Family History - Family History Family Medical History: No Pertinent Family History - Caffeine Use Caffeine Use: Reports: Coffee, Energy Drinks, Soda, Tea ED ROS GENERAL - Review of Systems Review Of Systems: See Below Constitutional: Reports: Decreased Appetite HEENT: Reports: No Symptoms Respiratory: Reports: No Symptoms Cardiovascular: Reports: No Symptoms Endocrine: Reports: No Symptoms GI/Abdominal: Reports: Abdominal Pain (Severe epigastric pain that started yesterday and is constant), Diarrhea (Loose stools for 1 day), Nausea (Mild) : Reports: No Symptoms Musculoskeletal: Reports: Back Pain (Mid back pain) Skin: Reports: No Symptoms Neurological: Reports: No Symptoms Psychiatric: Reports: No Symptoms Hematologic/Lymphatic: Reports: No Symptoms Immunologic: Reports: No Symptoms ED EXAM, GI/ABD - Physical Exam Exam: See Below Exam Limited By: No Limitations General Appearance: Alert, Anxious, Severe Distress Eyes: Bilateral: EOMI Throat/Mouth: Normal Inspection, Normal Oropharynx, Normal Voice, No Airway Compromise Head: Atraumatic, Normocephalic Neck: Normal Inspection, Supple Respiratory/Chest: No Respiratory Distress, Lungs Clear, Normal Breath Sounds Cardiovascular: Normal Peripheral Pulses, Regular Rate, Rhythm, Tachycardia GI/Abdominal Exam: Soft, No Distention, Guarding (Mild guarding over the epigastrium), Tender (Moderate to severe tenderness with palpation of the epigastrium), Abnormal Bowel Sounds (Diminished bowel sounds). No: Rigid, Rebound Back Exam: Normal Inspection, Full Range of Motion Extremities: Normal Inspection, Normal Range of Motion Neurological: Alert, Oriented, Normal Cognition, No Motor/Sensory Deficits Psychiatric: Normal Affect Skin Exam: Warm, Dry Lymphatic: No Adenopathy Course - Vital Signs Last Recorded V/S: Last Vital Signs Temp 36.8 C 09/07/20 19:18 Pulse 76 09/07/20 23:59 Resp 18 09/07/20 23:59 BP 134/82 09/07/20 23:59 Pulse Ox 99 09/07/20 23:59 - Orders/Labs/Meds Orders: Active Orders 24 hr Category Date Time Status Abdomen Comp [US] Stat Exams 09/07/20 22:00 Taken Iopamidol [Isovue-300 (61%)] Med 09/07/20 20:15 Active 100 ml IV . DIRECTED Lactated Ringers [Ringers, Lactated] 1,000 ml Med 09/07/20 19:45 Active IV ASDIRECTED Sodium Chloride 0.9% [Normal Saline] 80 ml Med 09/07/20 20:15 Active IV ASDIRECTED Sodium Chloride 0.9% [Saline Flush] Med 09/07/20 19:27 Active 10 ml FLUSH ASDIRECTED PRN Saline Lock Insert [OM.PC] Routine Oth 09/07/20 19:27 Ordered Medication Orders Lactated Ringer's (Ringers, Lactated) 1,000 mls @ 250 mls/hr IV ASDIRECTED BRISA Last Admin: 09/07/20 19:42 Dose: 250 mls/hr Documented by: PREILOR Sodium Chloride (Normal Saline) 80 mls @ 3 mls/sec IV ASDIRECTED BRISA Last Admin: 09/07/20 20:16 Dose: 3 mls/sec Documented by: BECKY Iopamidol (Iopamidol 612 Mg/Ml 100 Ml Bottle) 100 ml IV . DIRECTED BRISA Last Admin: 09/07/20 20:16 Dose: 100 ml Documented by: BECKY Sodium Chloride (Sodium Chloride 0.9% 10 Ml Syringe) 10 ml FLUSH ASDIRECTED PRN PRN Reason: Keep Vein Open Last Admin: 09/07/20 22:00 Dose: 10 ml Documented by: PREILOR Labs: Laboratory Tests 09/07/20 09/07/20 09/07/20 Range/Units 19:38 19:42 21:24 WBC 8.8 (4.5-11.0) K/uL RBC 4.90 (4.30-5.90) M/uL Hgb 15.3 H (12.0-15.0) g/dL Hct 44.8 (40.0-54.0) % MCV 91 (80-98) fL MCH 31 (27-31) pg MCHC 34 (32-36) % Plt Count 225 (150-400) K/uL Neut % (Auto) 58 (36-66) % Lymph % (Auto) 29 (24-44) % Sutter % (Auto) 9 H (2-6) % Eos % (Auto) 3 (2-4) % Baso % (Auto) 1 (0-1) % Sodium 141 (140-148) mmol/L Potassium 3.8 (3.6-5.2) mmol/L Chloride 104 (100-108) mmol/L Carbon Dioxide 23 (21-32) mmol/L Anion Gap 14.4 H (5.0-14.0) mmol/L BUN 16 (7-18) mg/dL Creatinine 1.3 (0.8-1.3) mg/dL Est Cr Clr Drug Dosing 73.79 mL/min Estimated GFR (MDRD) 58 L (>60) Glucose 128 H (74-106) mg/dL Calcium 8.9 (8.5-10.1) mg/dL Total Bilirubin 0.8 D (0.2-1.0) mg/dL AST 19 (15-37) U/L ALT 25 (12-78) U/L Alkaline Phosphatase 97 (46-116) U/L C-Reactive Protein 0.15 (0.0-0.3) mg/dL Total Protein 7.0 (6.4-8.2) g/dL Albumin 3.9 (3.4-5.0) g/dL Globulin 3.1 (2.3-3.5) g/dL Albumin/Globulin Ratio 1.3 (1.2-2.2) Lipase 105 (73-393) U/L Urine Color Brown A (YELLOW) Urine Appearance Slightly cloudy A (CLEAR) Urine pH 5.5 (5.0-8.0) Ur Specific Beals >= 1.030 (1.008-1.030) Urine Protein Trace H (NEGATIVE) mg/dL Urine Glucose (UA) Negative (NEGATIVE) mg/dL Urine Ketones 15 H (NEGATIVE) mg/dL Urine Occult Blood Negative (NEGATIVE) Urine Nitrite Negative (NEGATIVE) Urine Bilirubin Moderate H (NEGATIVE) Urine Urobilinogen 1.0 (0.2-1.0) EU/dL Ur Leukocyte Esterase Negative (NEGATIVE) Urine RBC Not seen (0-5) Urine WBC Not seen (0-5) Ur Epithelial Cells Moderate Amorphous Sediment Few Urine Bacteria Few Urine Mucus Many Meds: Medications Generic Name Dose Route Start Last Admin Trade Name Freq PRN Reason Stop Dose Admin Lactated Ringer's 1,000 mls @ 250 mls/hr 09/07/20 19:45 09/07/20 19:42 Ringers, Lactated IV 250 mls/hr ASDIRECTED BRISA Administration Sodium Chloride 80 mls @ 3 mls/sec 09/07/20 20:15 09/07/20 20:16 Normal Saline IV 3 mls/sec ASDIRECTED BRISA Administration Iopamidol 100 ml 09/07/20 20:15 09/07/20 20:16 Iopamidol 612 Mg/Ml 100 Ml Bottle IV 100 ml . DIRECTED BRISA Administration Sodium Chloride 10 ml 09/07/20 19:27 09/07/20 22:00 Sodium Chloride 0.9% 10 Ml Syringe FLUSH 10 ml ASDIRECTED PRN Administration Keep Vein Open Discontinued Medications Generic Name Dose Route Start Last Admin Trade Name Rigo PRN Reason Stop Dose Admin Al Hydroxide/Mg Hydroxide 15 0 ml 09/07/20 23:38 09/07/20 23:56 ml/ Lidocaine HCl 15 ml PO 09/07/20 23:39 30 ml ONETIME ONE Administration Hydromorphone HCl 1 mg 09/07/20 19:32 09/07/20 19:43 Hydromorphone 1 Mg/Ml Syringe IVPUSH 09/07/20 19:33 1 mg ONETIME ONE Administration Ondansetron HCl 4 mg 09/07/20 19:27 09/07/20 19:43 Ondansetron 4 Mg/2 Ml Sdv IVPUSH 09/07/20 19:28 4 mg ONETIME ONE Administration - Radiology Interpretation Free Text/Narrative:: I reviewed the CT of the abdomen and pelvis with contrast as well as the report. There is no acute abnormalities evident on the study. The report confirms this. - Re-Assessments/Exams Free Text/Narrative Re-Assessment/Exam: 09/07/20 22:01 I reviewed the patient's labs showing a normal CBC and comprehensive metabolic panel. His urinalysis shows a considerable amount of bilirubin but otherwise is unremarkable for infection. There is a normal lipase as well. CT of the abdomen and pelvis was performed and does not show any evidence of any acute abnormalities to account for his severe pain. We will get an ultrasound of the right upper quadrant to evaluate the gallbladder. At this time, the patient's symptoms have been controlled with Dilaudid 1 mg IV and Zofran 4 mg IV. He is continuing to receive lactated Ringer's at 250 cc/h. 09/07/20 23:40 ultrasound of the abdomen showed a normal gallbladder, and common bile duct, liver, kidneys, pancreas, and spleen. There was no evidence for sludge in the gallbladder. It is still unclear what the nidus for his upper abdominal pain is, however, I am going to give him a GI cocktail to see if this perhaps is acute gastritis. The patient has not had any hematemesis, melena or hematochezia. If the GI cocktail does help reduce his symptoms, I will put him on a PPI and Carafate for 2 to 3 weeks and have him follow-up with his primary care provider for recheck. At this time I believe the patient is suitable for discharge home in satisfactory condition. 09/08/20 00:11 patient was given a GI cocktail and had some relief of symptoms. I do believe that this is likely the nidus for his upper abdominal epigastric pain. We will push forward with Protonix 40 mg daily and Carafate 4 times a day for the next 30 days. I will have him follow-up with his primary care provider in 2 to 3 weeks for recheck. Indications return to the ED were discussed and he was discharged in satisfactory condition. Departure - Departure Time of Disposition: 00:12 Disposition: Home, Self-Care 01 Clinical Impression: Epigastric abdominal pain Acute gastritis without hemorrhage Qualifiers: Gastritis type: unspecified gastritis Qualified Code(s): K29.00 - Acute gastritis without bleeding - Discharge Information Prescriptions: Sucralfate [Carafate] 1 gm PO Q6HR #120 tab Pantoprazole Sodium [Protonix] 40 mg PO DAILY #30 tablet. Instructions: Gastritis, Adult, Abdominal Pain, Adult Referrals: Nehal Callaway PA [Primary Care Provider] - Forms: ED Department Discharge Care Plan Goals: Your work-up today has shown that you do not have any significant gallbladder, pancreatic, or liver disease. Your CAT scan was unremarkable for any significant findings. Your ultrasound did not demonstrate any significant gallbladder disease or gallstones. It is likely that your pain is arising from irritation of the lining of the stomach. Please avoid any alcohol intake for the next 2 to 3 weeks. We are replacing your omeprazole with Protonix which is considerably stronger. Please take 1 tablet daily for the next 30 days. In addition I am putting you on an acid absorbing medication called Carafate that she will take 15 minutes before each meal and 15 minutes before bedtime. This will also help reduce the amount of acid in your stomach and allow for healing of the lining. Again please follow-up with your primary care provider in 2 to 3 weeks for a recheck. If symptoms worsen please return to the ED or the clinic for reevaluation. Sepsis Event Note (ED) - Evaluation Sepsis Screening Result: Possible Sepsis Risk - Focused Exam Vital Signs: Vital Signs Temp Pulse Resp BP Pulse Ox 09/07/20 23:59 76 18 134/82 99 09/07/20 20:20 87 18 120/82 98 09/07/20 19:55 89 22 H 131/91 H 98 09/07/20 19:18 36.8 C 108 H 24 H 149/96 H 98 - Problem List & Annotations (1) Acute gastritis without hemorrhage SNOMED Code(s): 77668607, 19391947 Code(s): K29.00 - ACUTE GASTRITIS WITHOUT BLEEDING Status: Acute Priority: High Current Visit: Yes Qualifiers: Gastritis type: unspecified gastritis Qualified Code(s): K29.00 - Acute gastritis without bleeding (2) Epigastric abdominal pain SNOMED Code(s): 58274187 Code(s): R10.13 - EPIGASTRIC PAIN Status: Acute Priority: High Current Visit: Yes - Problem List Review Problem List Initiated/Reviewed/Updated: Yes - My Orders Last 24 Hours: My Active Orders 09/07/20 19:27 Sodium Chloride 0.9% [Saline Flush] 10 ml FLUSH ASDIRECTED PRN Saline Lock Insert [OM.PC] Routine 09/07/20 19:45 Lactated Ringers [Ringers, Lactated] 1,000 ml IV ASDIRECTED 09/07/20 20:15 Iopamidol [Isovue-300 (61%)] 100 ml IV . DIRECTED Sodium Chloride 0.9% [Normal Saline] 80 ml IV ASDIRECTED 09/07/20 22:00 Abdomen Comp [US] Stat - Assessment/Plan Last 24 Hours: My Active Orders 09/07/20 19:27 Sodium Chloride 0.9% [Saline Flush] 10 ml FLUSH ASDIRECTED PRN Saline Lock Insert [OM.PC] Routine 09/07/20 19:45 Lactated Ringers [Ringers, Lactated] 1,000 ml IV ASDIRECTED 09/07/20 20:15 Iopamidol [Isovue-300 (61%)] 100 ml IV . DIRECTED Sodium Chloride 0.9% [Normal Saline] 80 ml IV ASDIRECTED 09/07/20 22:00 Abdomen Comp [US] Stat
[2020-09-07] MEDS ORDERED: HYDROmorphone 1 MG/ML Syringe IVPUSH ONE (19:32)
[2020-09-07] MEDS ORDERED: Lactated Ringers 1,000 ML IV SCH (19:45)
[2020-09-07] MEDS ORDERED: Iopamidol 612 MG/ML 100 ML Bottle IV SCH (20:15)
[2020-09-07] MEDS ORDERED: Sodium Chloride 0.9% 80 ML IV SCH (20:15)
--- NOTE | 2020-09-07 21:26 | CRLCT ---
Indication: Epigastric pain Technique: Contrast enhanced axial CT imaging through the abdomen and pelvis. 100 mL Isovue-300 contrast agent was administered intravenously. Sagittal and coronal reconstructions are provided. Comparison: None Findings: No abnormalities are demonstrated relating to the liver, gallbladder, spleen, pancreas, adrenal glands, and kidneys. There is no abdominal lymphadenopathy. The portal vein is patent. There is atherosclerosis of the abdominal aorta and external iliac arteries with underlying aneurysm. The stomach and duodenum are unremarkable. There is no small bowel wall thickening or abnormal distention. The appendix is absent. There is no colonic wall thickening or mesenteric edema. The urinary bladder, prostate gland, and seminal vesicles are unremarkable. There is no pelvic lymphadenopathy or free fluid. Intervertebral disc prosthesis is noted at L5-S1. The osseous structures are otherwise unremarkable. The included lung bases are clear. Impression: No acute process demonstrated in the abdomen and pelvis. Please note that all CT scans at this facility use dose modulation, iterative reconstruction, and/or weight-based dosing when appropriate to reduce radiation dose to as low as reasonably achievable. Dictated by Desean Lundy MD @ 09/07/2020 9:25:[address] Desean Lundy @ Sep 07 2020 9:25PM
[2020-09-07] MEDS ORDERED: Alum Hydrox/Mag Hydrox/Simeth 15 ML, Lidocaine 2% 15 ML PO ONE ×2 (23:38)
[2020-09-08] VITALS: BP 134/82; PULSE 76
--- NOTE | 2020-09-08 12:13 | US ---
Abdomen Comp CLINICAL HISTORY: Epigastric pain COMPARISON: Current CT abdomen. FINDINGS: The liver is free of mass or biliary dilatation. There is increased hepatic parenchymal echogenicity. No abnormal fluid is identified.The gallbladder shows no filling defects or wall thickening. The common duct measures 3 mm. The pancreas is free of mass. Right kidney measures 10.2 x 5.1 x 4.7 cm with cortical thickness of 1.1 cm.Left kidney measures 10.9 x 5.3 x 6.7 cm. Cortical thickness is 2.1 cm The aorta is not aneurysmal. The inferior vena cava is unremarkable. The spleen is borderline enlarged just under 13 cm in length. IMPRESSION: Borderline splenomegaly Fatty infiltration of the liver
== END 2020-09-08 00:25 | disposition home or self-care (01) ==
LOC: JP.ED 19:08
DX: K29.00 Acute gastritis without bleeding (principal); E78.00 Pure hypercholesterolemia, unspecified; J44.9 Chronic obstructive pulmonary disease, unspecified; K21.9 Gastro-esophageal reflux disease without esophagitis; Z79.899 Other long term (current) drug therapy
CPT/HCPCS: 36415; 74177; 76700; 76700-26; 80053; 81001; 83690; 85025; 86140; 96374; 96375; 99284-25; A9270-GY; J1170; J2405; J7120; Q9967

== ENCOUNTER 2020-10-30 13:07 | Emergency (ER) | payer MEDICAID ==
[2020-10-30 13:49] VITALS: BP 121/83; PULSE 107
[2020-10-30] MEDS ORDERED: Amoxicillin/Clavulanate K 875-125 MG Tab PO ONE (14:33)
[2020-10-30] MEDS ORDERED: Diphtheria,Pertussis(Acell),Tetanus Vaccine 0.5 ML Syringe IM ONE (14:33)
[2020-10-30] MEDS ORDERED: Ketorolac 30 MG/ML SDV IM ONE (14:39)
--- NOTE | 2020-10-30 14:44 | EDM.PDOC ---
ED HPI GENERAL MEDICAL PROBLEM - General Chief Complaint: Bite:Animal, Insect Stated Complaint: DOG BITE ON RIGHT WRIST POSSIBLY BROKEN Time Seen by Provider: 10/30/20 14:20 Source of Information: Reports: Patient History Limitations: Reports: No Limitations - History of Present Illness INITIAL COMMENTS - FREE TEXT/NARRATIVE: This is a 50-year-old male who presents with concerns of multiple dog bites. He was walking his dog yesterday evening when the dog was attacked by another animal. When he was breaking up the fight he was bitten multiple times in the right hand and wrist by his own dog. He reports that his dog is not vaccinated for rabies. He irrigated out the wound extensively with the sink and then his irrigated them with saline. He presents now with concerns of ongoing pain at the site of the bites. He had no fevers or chills. Some bleeding from some of the wounds but no purulent discharge. - Related Data Allergies Allergy/AdvReac Type Severity Reaction Status Date / Time No Known Allergies Allergy Verified 10/30/20 13:41 Home Meds: Home Meds Albuterol Sulfate [Proair Hfa] 2 puff INH QID 01/21/17 [History] Omeprazole Magnesium [Prilosec Otc] 20 mg PO DAILY 01/21/17 [History] Simvastatin [Zocor] 40 mg PO BEDTIME 01/21/17 [History] buPROPion HCL [Wellbutrin Xl] 150 mg PO QAM 01/21/17 [History] Fenofibrate Nanocrystallized [Fenofibrate] 48 mg PO DAILY 11/04/18 [History] methocarbamoL [Methocarbamol] 750 mg PO QID PRN 11/04/18 [History] Propranolol HCl 10 mg PO DAILY 09/03/19 [History] ziprasidone HCL [Ziprasidone HCl] 20 mg PO DAILY 09/03/19 [History] Budesonide/Formoterol [Symbicort 160-4.5 MCG] 2 puff INH BID 09/21/19 [History] Gabapentin [Neurontin] 600 mg PO TID 10/24/19 [History] busPIRone HCl [busPIRone] 10 mg PO BID 10/24/19 [History] Albuterol [Proventil Neb Soln] 1 ampule INH Q6H 01/24/20 [History] Mometasone/Formoterol [Dulera 200 Mcg/5 Mcg Inhaler] 2 puff IH BID 06/30/20 [History] Clindamycin HCl 300 mg PO TID #20 capsule 08/21/20 [Rx] Pantoprazole Sodium [Protonix] 40 mg PO DAILY #30 tablet. 09/08/20 [Rx] Sucralfate [Carafate] 1 gm PO Q6HR #120 tab 09/08/20 [Rx] Amoxicillin/Potassium Clav [Augmentin 875-125 Tablet] 1 each PO BID #14 tablet 10/30/20 [Rx] Past Medical History HEENT History: Reports: Impaired Vision Other HEENT History: wears glasses Cardiovascular History: Reports: High Cholesterol, SOB on Exertion Respiratory History: Reports: Asthma, COPD Gastrointestinal History: Reports: GERD Genitourinary History: Reports: None Musculoskeletal History: Reports: Arthritis, Back Pain, Chronic Other Musculoskeletal History: s/p ALIF 01-25-17. right hand pain Neurological History: Reports: Head Trauma Psychiatric History: Reports: Anxiety, Depression, Psych Hospitalization(s) Endocrine/Metabolic History: Reports: None Hematologic History: Reports: Blood Transfusion(s), Other (See Below) Other Hematologic History: ?as a baby-unknown Immunologic History: Reports: None Oncologic (Cancer) History: Reports: None Dermatologic History: Reports: Other (See Below) Other Dermatologic History: R index finger cut - Infectious Disease History Infectious Disease History: Reports: Chicken Pox, Measles, Mumps - Past Surgical History Head Surgeries/Procedures: Reports: None HEENT Surgical History: Reports: Tonsillectomy Cardiovascular Surgical History: Reports: None Respiratory Surgical History: Reports: None GI Surgical History: Reports: Appendectomy, Hernia, Abdominal Neurological Surgical History: Reports: Vertebroplasty, Other (See Below) Other Neurological Surgeries/Procedures: ALIF Musculoskeletal Surgical History: Reports: None Dermatological Surgical History: Reports: None Social & Family History - Family History Family Medical History: No Pertinent Family History - Tobacco Use Tobacco Use Status *Q: Current Every Day Tobacco User Years of Tobacco use: 30 Packs/Tins Daily: 0.5 - Caffeine Use Caffeine Use: Reports: Soda Caffeine Use Comment: occ - Recreational Drug Use Recreational Drug Use: Yes Recreational Drug Type: Reports: Marijuana/Hashish Recreational Drug Use Frequency: Daily ED ROS GENERAL - Review of Systems Review Of Systems: See Below Constitutional: Reports: No Symptoms HEENT: Reports: No Symptoms Respiratory: Reports: No Symptoms Cardiovascular: Reports: No Symptoms Endocrine: Reports: No Symptoms GI/Abdominal: Reports: No Symptoms : Reports: No Symptoms Musculoskeletal: Reports: No Symptoms Skin: Reports: Wound Neurological: Reports: No Symptoms Psychiatric: Reports: No Symptoms Hematologic/Lymphatic: Reports: No Symptoms Immunologic: Reports: No Symptoms ED EXAM, ANIMAL BITE - Physical Exam Exam: See Below Exam Limited By: No Limitations General Appearance: Alert, No Apparent Distress Ears: Normal External Exam Nose: Normal Inspection Throat/Mouth: Normal Inspection Head: Atraumatic, Normocephalic Neck: Normal Inspection Respiratory/Chest: No Respiratory Distress Cardiovascular: Regular Rate, Rhythm GI/Abdominal: Soft, No Distention Back Exam: Normal Inspection Extremities: Other (Multiple small puncture wounds on the right wrist and over the right hand. Full range of motion of the digits. No surrounding erythema. No palmar tenderness or swelling. Pain to palpation over the right wrist without swelling or deformity.) Neurological: Alert, Oriented Psychiatric: Normal Affect, Normal Mood Skin Exam: Normal Color, Warm/Dry Lymphatic: No Adenopathy Course - Vital Signs Last Recorded V/S: Last Vital Signs Temp 36.4 C 10/30/20 13:49 Pulse 107 H 10/30/20 13:49 Resp 20 10/30/20 13:49 BP 121/83 10/30/20 13:49 Pulse Ox 97 10/30/20 13:49 - Orders/Labs/Meds Orders: Active Orders 24 hr Category Date Time Status Vaccines to be Administered [RC] PER UNIT ROUTINE Care 10/30/20 14:33 Active Wrist Comp Min 3V Rt [CR] Stat Exams 10/30/20 14:38 Taken Meds: Medications Discontinued Medications Generic Name Dose Route Start Last Admin Trade Name Freq PRN Reason Stop Dose Admin Amoxicillin/Clavulanate Potassium 1 tab 10/30/20 14:33 10/30/20 14:51 Amoxicillin/Clavulanate K 875-125 Mg Tab PO 10/30/20 14:34 1 tab ONETIME ONE Administration Diphtheria/Tetanus/Acell Pertussis 0.5 ml 10/30/20 14:33 10/30/20 14:52 Diphtheria,Pertussis(Acell),Tetanus Vaccine 0.5 Ml Syringe IM 10/30/20 14:34 0.5 ml .ONCE ONE Administration Ketorolac Tromethamine 30 mg 10/30/20 14:39 10/30/20 14:53 Ketorolac 30 Mg/Ml Sdv IM 10/30/20 14:40 30 mg ONETIME ONE Administration - Re-Assessments/Exams Free Text/Narrative Re-Assessment/Exam: This is a 50-year-old male presents with concerns of multiple dog bites to the right wrist and hand. On exam he has normal vitals. Multiple small bites as noted. There is no evidence currently of infection, although wounds are only less than a day old. No signs of flexor tenosynovitis. Some of the wounds are near his nails but no involvement of nail bed. We obtained an x-ray of his right wrist given his discomfort which showed no fracture or other abnormality. His tetanus status was updated. He was given a dose of IM Toradol. He was given a dose of Augmentin and written a prescription for this. We discussed return precautions including signs of infection. He also knows he needs to monitor his dog for signs of rabies infection and promptly see a physician if these develop. 10/30/20 14:42 Departure - Departure Time of Disposition: 15:20 Disposition: Home, Self-Care 01 Clinical Impression: Dog bite Qualifiers: Encounter type: initial encounter Qualified Code(s): W54.0XXA - Bitten by dog, initial encounter - Discharge Information *PRESCRIPTION DRUG MONITORING PROGRAM REVIEWED*: No *COPY OF PRESCRIPTION DRUG MONITORING REPORT IN PATIENT ELIUD: No Prescriptions: Amoxicillin/Potassium Clav [Augmentin 875-125 Tablet] 1 each PO BID #14 tablet Referrals: Nehal Callaway PA [Primary Care Provider] - Forms: ED Department Discharge Additional Instructions: As discussed, it is important to take the antibiotics for your dog bites. If you notice increasing redness, discharge, or pain in any of the sites these may be signs of infection and you should see a physician promptly. Please make a follow-up appointment with your primary doctor next week for a wound check. Thank you for letting us care for you today. Sepsis Event Note (ED) - Evaluation Sepsis Screening Result: No Definite Risk - Focused Exam Vital Signs: Vital Signs Temp Pulse Resp BP Pulse Ox 10/30/20 13:49 36.4 C 107 H 20 121/83 97 10/30/20 13:45 36.4 C 107 H 20 121/83 97 - My Orders Last 24 Hours: My Active Orders 10/30/20 14:33 Vaccines to be Administered [RC] PER UNIT ROUTINE 10/30/20 14:38 Wrist Comp Min 3V Rt [CR] Stat - Assessment/Plan Last 24 Hours: My Active Orders 10/30/20 14:33 Vaccines to be Administered [RC] PER UNIT ROUTINE 10/30/20 14:38 Wrist Comp Min 3V Rt [CR] Stat
--- NOTE | 2020-10-30 15:25 | CR ---
Wrist Comp Min 3V Rt CLINICAL HISTORY: Dog bite, pain FINDINGS: There is no acute fracture or dislocation within the right wrist. There is separation of the ulnar styloid. Margins appear sclerotic. This is likely of remote chronology or congenital. No foreign body seen. Impression: No acute fracture or foreign body
== END 2020-10-30 15:39 | disposition home or self-care (01) ==
LOC: JP.ED 13:07
DX: S61.551A Open bite of right wrist, initial encounter (principal); S61.451A Open bite of right hand, initial encounter; E78.00 Pure hypercholesterolemia, unspecified; K21.9 Gastro-esophageal reflux disease without esophagitis; J44.9 Chronic obstructive pulmonary disease, unspecified; Z23 Encounter for immunization; Z72.0 Tobacco use; Z79.899 Other long term (current) drug therapy; W54.0XXA Bitten by dog, initial encounter
CPT/HCPCS: 73110; 90471; 90715; 96372; 99283; A9270; J1885

== ENCOUNTER 2020-12-21 12:14 | Emergency (ER) | payer MEDICAID ==
[2020-12-21 14:03] VITALS: BP 124/89; PULSE 75
[2020-12-21] MEDS ORDERED: Acetaminophen/oxyCODONE 325-5 MG Tab PO STA (14:08)
--- NOTE | 2020-12-21 14:14 | EDM.PDOC ---
ED HPI GENERAL MEDICAL PROBLEM - General Chief Complaint: Upper Extremity Injury/Pain Stated Complaint: RT SHOULDER PAIN Time Seen by Provider: 12/21/20 14:00 Source of Information: Reports: Patient, Old Records History Limitations: Reports: No Limitations - History of Present Illness INITIAL COMMENTS - FREE TEXT/NARRATIVE: 50 yo male presents with pain to the R shoulder that has been present since he awoke today. He denies any recent injury or exertion. Pain is worse with movement of that area. No hx of the same. Took ibuprofen at home without much relief. No other sx's. Was not drinking ETOH last night, says he doesn't drink. 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 - Related Data Allergies Allergy/AdvReac Type Severity Reaction Status Date / Time No Known Allergies Allergy Verified 12/21/20 14:18 Home Meds: Home Meds Albuterol Sulfate [Proair Hfa] 2 puff INH QID 01/21/17 [History] Omeprazole Magnesium [Prilosec Otc] 20 mg PO DAILY 01/21/17 [History] Simvastatin [Zocor] 40 mg PO BEDTIME 01/21/17 [History] buPROPion HCL [Wellbutrin Xl] 150 mg PO QAM 01/21/17 [History] Fenofibrate Nanocrystallized [Fenofibrate] 48 mg PO DAILY 11/04/18 [History] methocarbamoL [Methocarbamol] 750 mg PO QID PRN 11/04/18 [History] Propranolol HCl 10 mg PO DAILY 09/03/19 [History] Budesonide/Formoterol [Symbicort 160-4.5 MCG] 2 puff INH BID 09/21/19 [History] Gabapentin [Neurontin] 600 mg PO TID 10/24/19 [History] busPIRone HCl [busPIRone] 10 mg PO BID 10/24/19 [History] Albuterol [Proventil Neb Soln] 1 ampule INH Q6H 01/24/20 [History] Mometasone/Formoterol [Dulera 200 Mcg/5 Mcg Inhaler] 2 puff IH BID 06/30/20 [History] Clindamycin HCl 300 mg PO TID #20 capsule 08/21/20 [Rx] Pantoprazole Sodium [Protonix] 40 mg PO DAILY #30 tablet.dr 09/08/20 [Rx] Sucralfate [Carafate] 1 gm PO Q6HR #120 tab 09/08/20 [Rx] Amoxicillin/Potassium Clav [Augmentin 875-125 Tablet] 1 each PO BID #14 tablet 10/30/20 [Rx] DULoxetine [Cymbalta] 1 tab PO DAILY 12/21/20 [History] Diclofenac Sodium [Voltaren] 1 tab PO DAILY 12/21/20 [History] Mirtazapine [Remeron] 1 tab PO DAILY 12/21/20 [History] Past Medical History HEENT History: Reports: Impaired Vision Other HEENT History: wears glasses Cardiovascular History: Reports: High Cholesterol, SOB on Exertion Respiratory History: Reports: Asthma, COPD Gastrointestinal History: Reports: GERD Genitourinary History: Reports: None Musculoskeletal History: Reports: Arthritis, Back Pain, Chronic Other Musculoskeletal History: s/p ALIF 01-25-17. right hand pain Neurological History: Reports: Head Trauma Psychiatric History: Reports: Anxiety, Depression, Psych Hospitalization(s) Endocrine/Metabolic History: Reports: None Hematologic History: Reports: Blood Transfusion(s), Other (See Below) Other Hematologic History: ?as a baby-unknown Immunologic History: Reports: None Oncologic (Cancer) History: Reports: None Dermatologic History: Reports: Other (See Below) Other Dermatologic History: R index finger cut - Infectious Disease History Infectious Disease History: Reports: Chicken Pox, Measles, Mumps - Past Surgical History Head Surgeries/Procedures: Reports: None HEENT Surgical History: Reports: Tonsillectomy Cardiovascular Surgical History: Reports: None Respiratory Surgical History: Reports: None GI Surgical History: Reports: Appendectomy, Hernia, Abdominal Neurological Surgical History: Reports: Vertebroplasty, Other (See Below) Other Neurological Surgeries/Procedures: ALIF Musculoskeletal Surgical History: Reports: None Dermatological Surgical History: Reports: None Social & Family History - Family History Family Medical History: No Pertinent Family History - Caffeine Use Caffeine Use: Reports: Soda Caffeine Use Comment: occ Review of Systems - Review of Systems Review Of Systems: See Below Constitutional: Reports: No Symptoms Respiratory: Reports: No Symptoms Cardiovascular: Reports: No Symptoms Musculoskeletal: Reports: Joint Pain (R deltoid area) Skin: Reports: No Symptoms Neurological: Reports: No Symptoms ED EXAM, GENERAL - Physical Exam Exam: See Below Exam Limited By: No Limitations General Appearance: Alert, WD/WN, No Apparent Distress Eye Exam: Bilateral Eye: Normal Inspection Ears: Normal External Exam, Normal Canal, Hearing Grossly Normal Ear Exam: Bilateral Ear: Auricle Normal, Canal Normal Nose: Normal Inspection, No Blood Throat/Mouth: Normal Inspection, Normal Lips, Normal Voice, No Airway Compromise Head: Atraumatic, Normocephalic Neck: Normal Inspection Respiratory/Chest: No Respiratory Distress Cardiovascular: Regular Rate, Rhythm Extremities: Normal Inspection, Normal Range of Motion, No Pedal Edema. No: Non-Tender (R deltoid area is tender on palpation, no masses, no discoloration) Neurological: Alert, Oriented, CN II-XII Intact, Normal Cognition, No Motor/Sensory Deficits Psychiatric: Normal Affect, Normal Mood Skin Exam: Warm, Dry, Intact, Normal Color, No Rash #1 Interpretation EKG Date: 12/21/20 Time: 14:35 Rhythm: NSR Rate (Beats/Min): 75 [place]: Normal P-Wave: Present QRS: Normal ST-T: Normal QT: Normal Comparison: No Change Course - Vital Signs Last Recorded V/S: Last Vital Signs Temp 36.2 C 12/21/20 14:29 Pulse 75 12/21/20 14:29 Resp 18 12/21/20 14:29 BP 124/89 12/21/20 14:29 Pulse Ox 98 12/21/20 14:29 - Orders/Labs/Meds Orders: Active Orders 24 hr Category Date Time Status Humerus Rt [CR] Stat Exams 12/21/20 14:09 Ordered EKG 12 Lead [EK] Routine Ther 12/21/20 14:12 Ordered Meds: Medications Discontinued Medications Generic Name Dose Route Start Last Admin Trade Name Freq PRN Reason Stop Dose Admin Oxycodone/Acetaminophen 1 tab 12/21/20 14:08 12/21/20 14:17 Acetaminophen/Oxycodone 325-5 Mg Tab PO 12/21/20 14:09 1 tab ONETIME STA Administration - Radiology Interpretation Free Text/Narrative:: R humerus X-ray-neg Departure - Departure Time of Disposition: 15:15 Disposition: Home, Self-Care 01 Condition: Fair Clinical Impression: Pain of right deltoid - Discharge Information *PRESCRIPTION DRUG MONITORING PROGRAM REVIEWED*: No *COPY OF PRESCRIPTION DRUG MONITORING REPORT IN PATIENT ELIUD: No Instructions: Shoulder Pain Referrals: Nehal Callaway PA [Primary Care Provider] - Forms: ED Department Discharge Additional Instructions: Take ibuprofen 600 mg every 6 hrs with food. Add either acetaminophen 1000 mg every 6 hrs OR [place] for pain relief. Rest that arm. Moist heat and massage may benefit. Recheck with your doctor if not a lot better by Tuesday. Sepsis Event Note (ED) - Focused Exam Vital Signs: Vital Signs Temp Pulse Resp BP Pulse Ox 12/21/20 14:29 36.2 C 75 18 124/89 98 12/21/20 14:02 36.2 C 75 18 124/89 98 - My Orders Last 24 Hours: My Active Orders 12/21/20 14:09 Humerus Rt [CR] Stat 12/21/20 14:12 EKG 12 Lead [EK] Routine - Assessment/Plan Last 24 Hours: My Active Orders 12/21/20 14:09 Humerus Rt [CR] Stat 12/21/20 14:12 EKG 12 Lead [EK] Routine
--- NOTE | 2020-12-22 10:51 | CR ---
Humerus Rt CLINICAL HISTORY: Pain FINDINGS: There is no acute fracture within the humerus. IMPRESSION: Negative right humerus.
== END 2020-12-21 15:16 | disposition home or self-care (01) ==
LOC: JP.ED 12:14
DX: M25.511 Pain in right shoulder (principal); E78.00 Pure hypercholesterolemia, unspecified; J44.9 Chronic obstructive pulmonary disease, unspecified; K21.9 Gastro-esophageal reflux disease without esophagitis; M19.90 Unspecified osteoarthritis, unspecified site; Z79.899 Other long term (current) drug therapy
CPT/HCPCS: 73060; 93005; 99283; A9270

== ENCOUNTER 2020-12-31 19:40 | Emergency (ER) | payer MEDICAID ==
[2020-12-31 19:57] VITALS: BP 111/83; PULSE 84
[2020-12-31] MEDS ORDERED: Bacitracin Oint 1 GM U/D Packet TOP ONE (20:03)
--- NOTE | 2020-12-31 20:30 | EDM.PDOC ---
ED HPI GENERAL MEDICAL PROBLEM - General Chief Complaint: Laceration Stated Complaint: L HAND INJURY Time Seen by Provider: 12/31/20 19:43 Source of Information: Reports: Patient History Limitations: Reports: No Limitations - History of Present Illness INITIAL COMMENTS - FREE TEXT/NARRATIVE: 50-year-old male was changing the lawnmower blade when it slipped and he sustained a laceration on the thenar area of his left hand. He has a 3 cm somewhat irregular laceration, distal CMS is fine. He cleaned it thoroughly before coming in. Onset: Sudden Duration: Hour(s): (1 hour ago) Location: Reports: Upper Extremity, Left Associated Symptoms: Reports: No Other Symptoms Left Hand Pain Score (Numeric/FACES): 10 - Related Data Allergies Allergy/AdvReac Type Severity Reaction Status Date / Time No Known Allergies Allergy Verified 12/31/20 19:58 Home Meds: Home Meds Albuterol Sulfate [Proair Hfa] 2 puff INH QID 01/21/17 [History] Omeprazole Magnesium [Prilosec Otc] 20 mg PO DAILY 01/21/17 [History] Simvastatin [Zocor] 40 mg PO BEDTIME 01/21/17 [History] buPROPion HCL [Wellbutrin Xl] 150 mg PO QAM 01/21/17 [History] Fenofibrate Nanocrystallized [Fenofibrate] 48 mg PO DAILY 11/04/18 [History] methocarbamoL [Methocarbamol] 750 mg PO QID PRN 11/04/18 [History] Propranolol HCl 10 mg PO DAILY 09/03/19 [History] Budesonide/Formoterol [Symbicort 160-4.5 MCG] 2 puff INH BID 09/21/19 [History] Gabapentin [Neurontin] 600 mg PO TID 10/24/19 [History] busPIRone HCl [busPIRone] 10 mg PO BID 10/24/19 [History] Albuterol [Proventil Neb Soln] 1 ampule INH Q6H 01/24/20 [History] Mometasone/Formoterol [Dulera 200 Mcg/5 Mcg Inhaler] 2 puff IH BID 06/30/20 [History] Pantoprazole Sodium [Protonix] 40 mg PO DAILY #30 tablet. 09/08/20 [Rx] Sucralfate [Carafate] 1 gm PO Q6HR #120 tab 09/08/20 [Rx] Amoxicillin/Potassium Clav [Augmentin 875-125 Tablet] 1 each PO BID #14 tablet 10/30/20 [Rx] DULoxetine [Cymbalta] 1 tab PO DAILY 12/21/20 [History] Diclofenac Sodium [Voltaren] 1 tab PO DAILY 12/21/20 [History] Mirtazapine [Remeron] 1 tab PO DAILY 12/21/20 [History] Past Medical History HEENT History: Reports: Impaired Vision Other HEENT History: wears glasses Cardiovascular History: Reports: High Cholesterol, SOB on Exertion Respiratory History: Reports: Asthma, COPD Gastrointestinal History: Reports: GERD Genitourinary History: Reports: None Musculoskeletal History: Reports: Arthritis, Back Pain, Chronic Other Musculoskeletal History: s/p ALIF 01-25-17. right hand pain Neurological History: Reports: Head Trauma Psychiatric History: Reports: Anxiety, Depression, Psych Hospitalization(s) Endocrine/Metabolic History: Reports: None Hematologic History: Reports: Blood Transfusion(s), Other (See Below) Other Hematologic History: ?as a baby-unknown Immunologic History: Reports: None Oncologic (Cancer) History: Reports: None Dermatologic History: Reports: Other (See Below) Other Dermatologic History: R index finger cut - Infectious Disease History Infectious Disease History: Reports: Chicken Pox, Measles, Mumps - Past Surgical History Head Surgeries/Procedures: Reports: None HEENT Surgical History: Reports: Tonsillectomy Cardiovascular Surgical History: Reports: None Respiratory Surgical History: Reports: None GI Surgical History: Reports: Appendectomy, Hernia, Abdominal Neurological Surgical History: Reports: Vertebroplasty, Other (See Below) Other Neurological Surgeries/Procedures: ALIF Musculoskeletal Surgical History: Reports: None Dermatological Surgical History: Reports: None Social & Family History - Family History Family Medical History: No Pertinent Family History - Tobacco Use Tobacco Use Status *Q: Current Every Day Tobacco User Years of Tobacco use: 30 Packs/Tins Daily: 1 - Caffeine Use Caffeine Use: Reports: Coffee Caffeine Use Comment: occ - Recreational Drug Use Recreational Drug Type: Reports: Marijuana/Hashish ED ROS GENERAL - Review of Systems Review Of Systems: See Below Constitutional: Denies: Fever, Chills Respiratory: Reports: No Symptoms Cardiovascular: Reports: No Symptoms GI/Abdominal: Reports: No Symptoms Neurological: Reports: Paresthesia (Slight numbness distal to the laceration) Psychiatric: Reports: Anxiety ED EXAM, SKIN/RASH Exam: See Below Exam Limited By: No Limitations General Appearance: Alert, No Apparent Distress, Anxious Respiratory/Chest: No Respiratory Distress, Lungs Clear Extremities: Other (Exam is otherwise limited to the left hand. Patient has a 3 cm somewhat irregular laceration to the thenar area of the left palm. Slight numbness distal to the laceration but full range of motion and strength, circulation is normal) Neurological: Alert, Oriented Psychiatric: Anxious Course - Vital Signs Last Recorded V/S: Last Vital Signs Temp 97.3 F 12/31/20 19:51 Pulse 84 12/31/20 19:51 Resp 16 12/31/20 19:51 BP 111/83 12/31/20 19:51 Pulse Ox 959 H 12/31/20 19:51 - Orders/Labs/Meds Meds: Medications Discontinued Medications Generic Name Dose Route Start Last Admin Trade Name Freq PRN Reason Stop Dose Admin Bacitracin 1 dose 12/31/20 20:03 12/31/20 20:10 Bacitracin Oint 1 Gm U/D Packet TOP 12/31/20 20:04 1 dose ONETIME ONE Administration Lidocaine HCl 5 ml 12/31/20 20:03 12/31/20 20:10 Lidocaine 1% 5 Ml Sdv INJECT 12/31/20 20:04 5 ml ONETIME ONE Administration - Re-Assessments/Exams Free Text/Narrative Re-Assessment/Exam: 12/31/20 20:28 The laceration was cleaned thoroughly with saline after anesthesia with 1% lidocaine. Five 4-0 Ethilon sutures were used to close the laceration. Topical bacitracin and a pressure dressing was applied, sutures can be removed in 8 days. Recheck sooner if concerns of infection or not healing satisfactorily. Departure - Departure Time of Disposition: 20:34 Disposition: Home, Self-Care 01 Clinical Impression: Laceration of left hand Qualifiers: Encounter type: initial encounter Foreign body presence: without foreign body Qualified Code(s): S61.412A - Laceration without foreign body of left hand, initial encounter - Discharge Information Instructions: Laceration Care, Adult, [id number] Referrals: PCP,None [Primary Care Provider] - Forms: ED Department Discharge Care Plan Goals: Keep wound covered and clean until stitches are removed in 8 days. Recheck sooner if concerns of infection or not healing satisfactorily. It is okay to wash the wound daily. Sepsis Event Note (ED) - Evaluation Sepsis Screening Result: No Definite Risk - Focused Exam Vital Signs: Vital Signs Temp Pulse Resp BP Pulse Ox 12/31/20 19:51 97.3 F 84 16 111/83 959 H
== END 2020-12-31 20:41 | disposition home or self-care (01) ==
LOC: JP.ED 19:40
DX: S61.412A Laceration without foreign body of left hand, initial encounter (principal); J44.9 Chronic obstructive pulmonary disease, unspecified; E78.00 Pure hypercholesterolemia, unspecified; Z79.899 Other long term (current) drug therapy; Z72.0 Tobacco use; W26.8XXA Contact with other sharp object(s), not elsewhere classified, initial encounter
CPT/HCPCS: 12002; 99282-25

== ENCOUNTER 2021-06-18 17:44 | Emergency (ER) | payer MEDICAID ==
[2021-06-18 18:25] VITALS: BP 138/86; PULSE 114
[2021-06-18 20:05] LABS: CORONAVIRUS COVID-19 NAA NEGATIVE (NEGATIVE)
== END 2021-06-18 20:19 | disposition home or self-care (01) ==
LOC: JP.ED 17:44
DX: J40 Bronchitis, not specified as acute or chronic (principal); J44.9 Chronic obstructive pulmonary disease, unspecified; F17.210 Nicotine dependence, cigarettes, uncomplicated; Z79.899 Other long term (current) drug therapy
CPT/HCPCS: 0241U; 36415; 71250; 74176; 80053; 85025; 99285; 99283

== ENCOUNTER 2021-06-28 10:16 | Emergency (ER) | payer MEDICAID ==
[2021-06-28 10:36] VITALS: BP 136/89; PULSE 110
[2021-06-28] MEDS ORDERED: Bacitracin Oint 1 GM U/D Packet TOP ONE (11:08)
== END 2021-06-28 11:23 | disposition home or self-care (01) ==
LOC: JP.ED 10:16
DX: T33.521A Superficial frostbite of right hand, initial encounter (principal); E78.00 Pure hypercholesterolemia, unspecified; K21.9 Gastro-esophageal reflux disease without esophagitis; J44.9 Chronic obstructive pulmonary disease, unspecified; Z72.0 Tobacco use; Z79.899 Other long term (current) drug therapy; X31.XXXA Exposure to excessive natural cold, initial encounter
CPT/HCPCS: 99282; 99283

== ENCOUNTER 2021-09-09 11:57 | Emergency (ER) | payer MEDICAID | END 2021-09-09 14:40 | disposition left against medical advice (07) | LOC: JP.ED 11:57 | DX: Z53.21 Procedure and treatment not carried out due to patient leaving prior to being seen by health care provider (principal) ==

== ENCOUNTER 2021-09-10 07:43 | Emergency (ER) | payer MEDICAID ==
[2021-09-10 08:14] VITALS: BP 128/92
[2021-09-10] MEDS ORDERED: Albuterol/Ipratropium 3.0-0.5 MG/3 ML Neb Soln NEB ONE (09:00)
[2021-09-10 09:13] LABS: CORONAVIRUS COVID-19 NAA NEGATIVE (NEGATIVE)
[2021-09-10] MEDS ORDERED: methylPREDNISolone Sodium Succinate 125 MG/2 ML SDV IVPUSH ONE (09:20)
[2021-09-10 10:04] VITALS: PULSE 78
== END 2021-09-10 10:03 | disposition home or self-care (01) ==
LOC: JP.ED 07:43
DX: J44.1 Chronic obstructive pulmonary disease with (acute) exacerbation (principal); J20.8 Acute bronchitis due to other specified organisms; K21.9 Gastro-esophageal reflux disease without esophagitis; E78.00 Pure hypercholesterolemia, unspecified; Z79.899 Other long term (current) drug therapy; Z20.822 Contact with and (suspected) exposure to COVID-19
CPT/HCPCS: 0241U; 71046; 94640; 96374; 99285; J2930; 99282; J7620

== ENCOUNTER 2021-09-12 13:29 | Emergency (ER) | payer MEDICAID ==
[2021-09-12] MEDS ORDERED: Sodium Chloride 0.9% 10 ML Syringe FLUSH PRN (13:40)
[2021-09-12] MEDS ORDERED: Aspirin 81 MG Tab.Chew PO ONE (13:43)
[2021-09-12] MEDS ORDERED: Albuterol/Ipratropium 3.0-0.5 MG/3 ML Neb Soln NEB ONE (13:43)
[2021-09-12 14:27] LABS: TROPONIN I HIGH SENSITIVITY 30.9 pg/mL (<=60.3)
[2021-09-12 15:25] VITALS: BP 139/92; PULSE 102
[2021-09-12] MEDS ORDERED: Iopamidol 755 Mg/ML 100 ML Bottle IV STA (15:29)
[2021-09-12] MEDS ORDERED: Sodium Chloride 0.9% 75 ML IV SCH (15:30)
[2021-09-12] MEDS ORDERED: Doxycycline 100 MG Cap PO ONE (17:54)
== END 2021-09-12 18:33 | disposition home or self-care (01) ==
LOC: JP.ED 13:29
DX: J45.901 Unspecified asthma with (acute) exacerbation (principal); J44.1 Chronic obstructive pulmonary disease with (acute) exacerbation; E78.00 Pure hypercholesterolemia, unspecified; K21.9 Gastro-esophageal reflux disease without esophagitis; M19.90 Unspecified osteoarthritis, unspecified site; Z90.49 Acquired absence of other specified parts of digestive tract; Z79.899 Other long term (current) drug therapy; Z20.822 Contact with and (suspected) exposure to COVID-19
CPT/HCPCS: 36415; 71045; 71275; 80053; 83605; 83690; 84443; 84484; 85025; 85379; 86140; 87635; 93005; 94640; 99285; A9270; J3490; Q9967; 93010; 99283; J7620; U0002

== ENCOUNTER 2021-09-28 13:10 | Emergency (ER) | payer MEDICAID ==
[2021-09-28 14:21] VITALS: BP 143/90; PULSE 113
[2021-09-28] MEDS ORDERED: LORazepam 2 MG/ML SDV IVPUSH ONE (14:55)
[2021-09-28] MEDS ORDERED: Sodium Chloride 0.9% 1,000 ML IV SCH (15:00)
[2021-09-28 15:54] LABS: CORONAVIRUS COVID-19 NAA NEGATIVE (NEGATIVE)
== END 2021-09-28 16:59 | disposition home or self-care (01) ==
LOC: JP.ED 13:10
DX: R10.30 Lower abdominal pain, unspecified (principal); R06.4 Hyperventilation; E78.00 Pure hypercholesterolemia, unspecified; K21.9 Gastro-esophageal reflux disease without esophagitis; J45.909 Unspecified asthma, uncomplicated; F17.210 Nicotine dependence, cigarettes, uncomplicated; Z90.49 Acquired absence of other specified parts of digestive tract; Z79.899 Other long term (current) drug therapy; Z20.822 Contact with and (suspected) exposure to COVID-19
CPT/HCPCS: 0241U; 36415; 36600; 74176; 80053; 82803; 83605; 85025; 96361; 96374; 99284; 99284-25; J2060; J7030

== ENCOUNTER 2022-05-18 13:48 | Emergency (ER) | payer MEDICAID ==
[2022-05-18 14:38] VITALS: BP 143/90; PULSE 75
[2022-05-18] MEDS ORDERED: Acetaminophen/oxyCODONE 325-5 MG Tab PO ONE (15:32)
[2022-05-18] MEDS ORDERED: Ketorolac 30 MG/ML SDV IM ONE (15:32)
== END 2022-05-18 16:40 | disposition home or self-care (01) ==
LOC: JP.ED 13:48
DX: M54.50 Low back pain, unspecified (principal); J44.9 Chronic obstructive pulmonary disease, unspecified; E78.00 Pure hypercholesterolemia, unspecified; I10 Essential (primary) hypertension; Z79.899 Other long term (current) drug therapy; Z90.49 Acquired absence of other specified parts of digestive tract
CPT/HCPCS: 96372; 99283; A9270; J1885

== ENCOUNTER 2022-07-15 20:28 | Emergency (ER) | payer OTHER, MEDICAID ==
[2022-07-15] MEDS ORDERED: Ketorolac 30 MG/ML SDV IVPUSH ONE (20:45)
[2022-07-15] MEDS ORDERED: Sodium Chloride 0.9% 10 ML Syringe FLUSH PRN (20:45)
[2022-07-15 21:13] VITALS: BP 139/93; PULSE 96
[2022-07-15] MEDS ORDERED: Diazepam 2 MG Tab PO ONE (21:47)
[2022-07-15] MEDS ORDERED: HYDROmorphone 1 MG/ML Syringe IVPUSH ONE (21:47)
== END 2022-07-15 23:11 | disposition home or self-care (01) ==
LOC: JP.ED 20:28
DX: S29.012A Strain of muscle and tendon of back wall of thorax, initial encounter (principal); M62.838 Other muscle spasm; J44.9 Chronic obstructive pulmonary disease, unspecified; E78.00 Pure hypercholesterolemia, unspecified; I10 Essential (primary) hypertension; Z79.899 Other long term (current) drug therapy; V89.2XXA Person injured in unspecified motor-vehicle accident, traffic, initial encounter; Y92.410 Unspecified street and highway as the place of occurrence of the external cause
CPT/HCPCS: 72128; 76377; 96374; 96375; 99282; 99285; A9270; J1170; J1885; J3490

== ENCOUNTER 2022-09-14 14:50 | Emergency (ER) | payer MEDICAID ==
[2022-09-14 15:06] VITALS: BP 127/88; PULSE 89
[2022-09-14] MEDS ORDERED: traMADol 50 MG Tab PO ONE (16:36)
== END 2022-09-14 17:04 | disposition home or self-care (01) ==
LOC: JP.ED 14:50
DX: M51.36 Other intervertebral disc degeneration, lumbar region (principal); J44.9 Chronic obstructive pulmonary disease, unspecified; I10 Essential (primary) hypertension; F17.210 Nicotine dependence, cigarettes, uncomplicated; Z79.899 Other long term (current) drug therapy; Z90.49 Acquired absence of other specified parts of digestive tract
CPT/HCPCS: 99283; A9270-GY

== ENCOUNTER 2022-09-26 16:56 | Emergency (ER) | payer MEDICAID ==
[2022-09-26 18:48] VITALS: BP 117/76; PULSE 78
[2022-09-26] MEDS ORDERED: Bacitracin Oint 1 GM U/D Packet TOP ONE (18:56)
== END 2022-09-26 19:26 | disposition home or self-care (01) ==
LOC: JP.ED 16:56
DX: S51.811A Laceration without foreign body of right forearm, initial encounter (principal); E78.00 Pure hypercholesterolemia, unspecified; I10 Essential (primary) hypertension; J44.9 Chronic obstructive pulmonary disease, unspecified; K21.9 Gastro-esophageal reflux disease without esophagitis; Z79.899 Other long term (current) drug therapy; W26.0XXA Contact with knife, initial encounter
CPT/HCPCS: 12002; 99282

== ENCOUNTER 2022-12-03 21:14 | Emergency (ER) | payer MEDICAID ==
[2022-12-03] MEDS ORDERED: Sodium Chloride 0.9% 10 ML Syringe FLUSH PRN (21:18)
[2022-12-03 21:48] LABS: BASOPHILS ABSOLUTE AUTO 0.08 K/uL (0.00-0.10); BASOPHILS PERCENT AUTO 0.9 % (0.1-1.3); EOSINOPHILS ABSOLUTE AUTO 0.22 K/uL (0.00-0.40); EOSINOPHILS PERCENT AUTO 2.4 % (0.0-5.4); HEMATOCRIT 41.7 % (38.4-49.7); HEMOGLOBIN 14.6 g/dL (12.9-16.9); IMMATURE GRAN PERCENT AUTO 0.2 % (0.0-0.7); LYMPHOCYTES ABSOLUTE AUTO 3.29 K/uL (0.8-3.3); LYMPHOCYTES PERCENT AUTO 36.5 % (11.4-47.7); MEAN CORPUSCULAR HEMOGLOBIN 31.4 pg (31.6-35.5); MEAN CORPUSCULAR VOLUME 89.7 fL (81.4-99.0); MONOCYTES ABSOLUTE AUTO 0.74 K/uL (0.20-0.90); MONOCYTES PERCENT AUTO 8.2 % (3.3-12.6); NEUTROPHILS ABSOLUTE AUTO 4.66 K/uL (1.0-7.6); NEUTROPHILS PERCENT AUTO 51.8 % (40.0-78.1); PLATELET COUNT,PLT 211 K/uL (130-375); RED BLOOD CELL COUNT 4.65 M/uL (4.14-5.76)
[2022-12-03 21:49] LABS: IMMATURE GRAN ABSOLUTE AUTO 0.02 K/uL (0.00-0.23)
[2022-12-03 21:58] LABS: BASE EXCESS ARTERIAL,ISTAT -2 mmol/L (-2-3); CALCIUM IONIZED,ISTAT 1.22 mmol/L (1.12-1.32); HEMATOCRIT,ISTAT 40 % (36-48); PCO2 ARTERIAL,ISTAT 28.2 mmHG (35-45); PH ARTERIAL,ISTAT 7.48 (7.35-7.45); PO2 ARTERIAL,ISTAT 68 mmHg (80-105); POTASSIUM,ISTAT 3.7 mmol/L (3.5-4.9); SODIUM,ISTAT 137 mmol/L (140-148); TCO2 ARTERIAL,ISTAT 22 mmol/L (23-27)
[2022-12-03 21:59] LABS: O2 SATURATION ARTERIAL,ISTAT 95 % (95-98)
[2022-12-03 22:08] LABS: PROTHROMBIN TIME 10.4 sec (9.2-10.6); PTT,PARTIAL THROMBOPLSTIN TIME 30.1 sec (21.8-27.3)
[2022-12-03 22:11] LABS: BLOOD UREA NITROGEN,BUN 15 mg/dL (7-18); CALCIUM 8.9 mg/dL (8.5-10.1); CARBON DIOXIDE,CO2 27 mmol/L (21-32); CHLORIDE,CL 105 mmol/L (100-108); CREATININE 1.3 mg/dL (0.8-1.3); ESTIMATED GFR 66 mL/min (>60); GLUCOSE RANDOM 93 mg/dL (74-106); POTASSIUM,K 3.7 mmol/L (3.6-5.2); SODIUM,NA 139 mmol/L (140-148); TROPONIN I HIGH SENSITIVITY 40.9 pg/mL (<=60.3)
[2022-12-03 22:13] LABS: ANION GAP 10.7 mmol/L (5.0-14.0)
[2022-12-03] MEDS ORDERED: Prochlorperazine 10 MG/2 ML SDV IVPUSH ONE (22:41)
[2022-12-03] MEDS ORDERED: diphenhydrAMINE 50 MG/ML SDV IVPUSH ONE (22:41)
[2022-12-03] MEDS ORDERED: Ketorolac 15 MG/ML SDV IVPUSH ONE (22:41)
[2022-12-03] MEDS ORDERED: Dexamethasone 4 MG/ML SDV IVPUSH ONE (22:41)
[2022-12-03 22:50] VITALS: BP 133/89; PULSE 73
== END 2022-12-04 00:15 | disposition home or self-care (01) ==
LOC: JP.ED 21:14
DX: G43.109 Migraine with aura, not intractable, without status migrainosus (principal); R20.0 Anesthesia of skin; R20.2 Paresthesia of skin; E78.00 Pure hypercholesterolemia, unspecified; I10 Essential (primary) hypertension; K21.9 Gastro-esophageal reflux disease without esophagitis; Z79.899 Other long term (current) drug therapy; Z20.822 Contact with and (suspected) exposure to COVID-19
CPT/HCPCS: 36415; 36600; 70450; 80048; 82803; 82947; 84484; 85025; 85610; 85730; 93005; 93010; 96374; 96375; 99284-25; 99291; J0780; J1100; J1200; J1885; J3490; U0002

== ENCOUNTER 2024-02-14 18:48 | Emergency (ER) | payer MEDICAID ==
[2024-02-14 19:05] LABS: BASOPHILS ABSOLUTE AUTO 0.07 K/uL (0.00-0.10); BASOPHILS PERCENT AUTO 0.7 % (0.1-1.3); EOSINOPHILS ABSOLUTE AUTO 0.17 K/uL (0.00-0.40); EOSINOPHILS PERCENT AUTO 1.7 % (0.0-5.4); HEMATOCRIT 50.1 % (38.4-49.7); IMMATURE GRAN ABSOLUTE AUTO 0.03 K/uL (0.00-0.23); IMMATURE GRAN PERCENT AUTO 0.3 % (0.0-0.7); LYMPHOCYTES ABSOLUTE AUTO 2.91 K/uL (0.8-3.3); LYMPHOCYTES PERCENT AUTO 29.2 % (11.4-47.7); MEAN CORPUSCULAR HEMOGLOBIN 31.7 pg (31.6-35.5); MEAN CORPUSCULAR HGB CONC 36.3 g/dL (31.6-35.5); MEAN CORPUSCULAR VOLUME 87.3 fL (81.4-99.0); MONOCYTES ABSOLUTE AUTO 1.32 K/uL (0.20-0.90); MONOCYTES PERCENT AUTO 13.3 % (3.3-12.6); NEUTROPHILS ABSOLUTE AUTO 5.45 K/uL (1.0-7.6); NEUTROPHILS PERCENT AUTO 54.8 % (40.0-78.1); PLATELET COUNT,PLT 244 K/uL (130-375); RED BLOOD CELL COUNT 5.74 M/uL (4.14-5.76)
[2024-02-14 19:07] LABS: HEMOGLOBIN 18.2 g/dL (12.9-16.9)
[2024-02-14 19:25] LABS: C-REACTIVE PROTEIN 0.89 mg/dL (<0.50); CREATININE 1.5 mg/dL (0.8-1.3); EST CRCL DRUG DOSING (CG) 61.79 mL/min; POTASSIUM,K 3.7 mmol/L (3.6-5.2)
[2024-02-14 19:26] LABS: ANION GAP 20.7 mmol/L (5.0-14.0)
[2024-02-14 19:31] LABS: LACTIC ACID 2.5 mmol/L (0.4-2.0)
[2024-02-14] MEDS ORDERED: Naloxone 0.4 MG/ML SDV IVPUSH PRN (19:50)
[2024-02-14 20:03] LABS: A/G RATIO 1.1 (1.2-2.2); ALBUMIN 4.1 g/dL (3.4-5.0); BILIRUBIN DIRECT 0.29 mg/dL (0.0-0.2); BILIRUBIN INDIRECT 0.81; BILIRUBIN TOTAL 1.1 mg/dL (0.2-1.0); PROTEIN TOTAL,TP 7.9 g/dL (6.4-8.2)
[2024-02-14] MEDS: HYDROmorphone 0.5 MG/0.5 ML Syringe IVPUSH ONE (20:06)
[2024-02-14] MEDS: Sodium Chloride 0.9% 80 ML IV SCH (20:24)
[2024-02-14] MEDS: Iopamidol 612 MG/ML 100 ML Bottle IV SCH (20:24)
[2024-02-14] MEDS: Sodium Chloride 0.9% 1,000 ML IV SCH (20:52)
[2024-02-14 22:16] VITALS: BP 135/91; PULSE 82
== END 2024-02-14 23:41 | disposition home or self-care (01) ==
LOC: JP.ED 18:48
DX: I77.1 Stricture of artery (principal); I10 Essential (primary) hypertension; K21.9 Gastro-esophageal reflux disease without esophagitis; J45.909 Unspecified asthma, uncomplicated; F17.210 Nicotine dependence, cigarettes, uncomplicated; Z79.899 Other long term (current) drug therapy; Z90.49 Acquired absence of other specified parts of digestive tract
CPT/HCPCS: 36415; 74177; 80048; 80076; 83605; 85025; 86140; 96361; 96374; 99284; J1171; J3490; J7030; Q9967

== ENCOUNTER 2024-05-21 12:36 | Emergency (ER) | payer MEDICAID ==
[2024-05-21] MEDS: methylPREDNISolone Sodium Succinate 125 MG/2 ML SDV IM ONE (12:59)
[2024-05-21 13:32] VITALS: BP 132/84; PULSE 93
== END 2024-05-21 13:41 | disposition home or self-care (01) ==
LOC: JP.ED 12:36
DX: T78.1XXA Other adverse food reactions, not elsewhere classified, initial encounter (principal); F17.210 Nicotine dependence, cigarettes, uncomplicated; I10 Essential (primary) hypertension; E78.00 Pure hypercholesterolemia, unspecified; J44.89 Other specified chronic obstructive pulmonary disease; Z91.018 Allergy to other foods; Z79.899 Other long term (current) drug therapy; Z79.51 Long term (current) use of inhaled steroids; Z86.73 Personal history of transient ischemic attack (TIA), and cerebral infarction without residual deficits; Z86.16 Personal history of COVID-19
CPT/HCPCS: 96372; 99283; J2919

== ENCOUNTER 2025-01-22 13:33 | Emergency (ER) | payer MEDICAID ==
[2025-01-22 13:56] LABS: BASE EXCESS VENOUS -4.9 mm/L; BICARBONATE,VENOUS 20.7 mmol/L; O2 SATURATION VENOUS 64.9; OXYHEMOGLOBIN 63.4 %; PCO2 VENOUS 41.4 mm/Hg; PH,VENOUS 7.319 (7.350-7.450); PO2 VENOUS 40.4 mm/Hg; TOTAL HEMOGLOBIN 19.3 g/dL (13.5-18.0)
[2025-01-22 13:56] LABS: BASOPHILS ABSOLUTE AUTO 0.07 K/uL (0.00-0.10); BASOPHILS PERCENT AUTO 0.4 % (0.1-1.3); EOSINOPHILS PERCENT AUTO 0.1 % (0.0-5.4); IMMATURE GRAN ABSOLUTE AUTO 0.08 K/uL (0.00-0.23); IMMATURE GRAN PERCENT AUTO 0.4 % (0.0-0.7); LYMPHOCYTES ABSOLUTE AUTO 2.00 K/uL (0.8-3.3); LYMPHOCYTES PERCENT AUTO 11.0 % (11.4-47.7); MONOCYTES ABSOLUTE AUTO 1.90 K/uL (0.20-0.90); MONOCYTES PERCENT AUTO 10.4 % (3.3-12.6); NEUTROPHILS ABSOLUTE AUTO 14.14 K/uL (1.0-7.6); NEUTROPHILS PERCENT AUTO 77.7 % (40.0-78.1); PLATELET COUNT,PLT 196 K/uL (130-375); RED BLOOD CELL COUNT 5.74 M/uL (4.14-5.76); WHITE BLOOD CELL COUNT,WBC 18.2 K/uL (3.2-11.0)
[2025-01-22 13:58] LABS: EOSINOPHILS ABSOLUTE AUTO 0.01 K/uL (0.00-0.40)
[2025-01-22 14:09] LABS: INR 1.1
[2025-01-22 14:26] LABS: A/G RATIO 0.9 (1.2-2.2); ALANINE AMINOTRANSFERASE,ALT 34 U/L (12-78); ASPARTATE AMNIOTRANSFERASE,AST 42 U/L (15-37); BILIRUBIN TOTAL 0.8 mg/dL (0.2-1.0); CARBON DIOXIDE,CO2 24 mmol/L (21-32); CHLORIDE,CL 113 mmol/L (100-108); CREATININE 2.7 mg/dL (0.8-1.3); ESTIMATED GFR 27 mL/min (>60); GLUCOSE RANDOM 279 mg/dL (74-106); POTASSIUM,K 4.3 mmol/L (3.6-5.2); PROTEIN TOTAL,TP 8.3 g/dL (6.4-8.2); SODIUM,NA 152 mmol/L (140-148)
[2025-01-22] MEDS: levETIRAcetam 500 MG/5 ML SDV IVPUSH ONE (14:30)
[2025-01-22 14:32] LABS: BLOOD UREA NITROGEN,BUN 121 mg/dL (7-18); CREATINE KINASE,CK 1821 U/L (39-308)
[2025-01-22 15:08] LABS: APPEARANCE,URINE CLEAR (CLEAR); GLUCOSE,URINE NEGATIVE (NEGATIVE); OCCULT BLOOD,URINE SMALL (NEGATIVE)
[2025-01-22 15:20] LABS: SQUAMOUS EPITHELIAL CELLS,UR FEW /HPF; UROTHELIAL CELLS,URINE NOT SEEN /HPF
[2025-01-22] MEDS: LORazepam 2 MG/ML SDV IVPUSH ONE (17:02)
[2025-02-01 17:23] VITALS: BP 136/83; PULSE 96
== END 2025-01-22 17:51 ==
LOC: JP.ED 13:33
DX: I63.9 Cerebral infarction, unspecified (principal); I10 Essential (primary) hypertension; E78.00 Pure hypercholesterolemia, unspecified; J44.9 Chronic obstructive pulmonary disease, unspecified; M19.90 Unspecified osteoarthritis, unspecified site; Z79.899 Other long term (current) drug therapy; Z88.8 Allergy status to other drugs, medicaments and biological substances; Z86.16 Personal history of COVID-19; Z90.49 Acquired absence of other specified parts of digestive tract
CPT/HCPCS: 36415; 51702; 70450; 70486; 71045; 72125; 76377; 80053; 80143; 80179; 81001; 82140; 82550; 82803; 83605; 84484; 85025; 85610; 87040; 93005; 96361; 96365; 96375; 99285; J1953; J2060; J2543; J7030; 93010